=== PATIENT | male | born 1970 | race Caucasian/White ===

== ENCOUNTER 2019-06-11 16:11 | Inpatient (IN) ==
[2019-06-11] MEDS ORDERED: SODIUM CHLORIDE 0.9% 1000ML 1,000 ML IV ONE (16:22)
--- NOTE | 2019-06-11 16:30 | Emergency Department Note ---
Entered by Emiliana Higuera acting as a scribe for History of Present Illness General Chief complaint: Leg Injury/Pain Stated complaint: FALL 8' FROM LADDER, LEG INJURY Source: patient History of Present Illness Onset (ago): minute(s) (prior to arrival) Location: head (general) Pain Consistency: + other (episode) Quality: + other (fall) Associated symptoms: + other (left leg pain and deformity, lower back pain) The patient is a 48 year old male who presents to the Emergency Room following an episode of a fall that occurred just prior to arrival. EMS states the patient was standing about 5 to 8 feet above the ground on a step ladder on uneven ground. EMS reports the patient's left leg went through the rungs of the ladder and he fell onto his back. EMS reports a deformity in his left leg. EMS states the patient was standing on his right leg leaning against a pole when they arrived.EMS notes the patient was given fentanyl on the way to the ER. The patient reports left leg pain, lower back pain, and a scraped elbow. The patient reports occasional tobacco and alcohol use. He states he had one drink earlier today. He notes that he is currently taking medication for his acid reflux. He denies any blood thinners. Home Medications Home Medications Medication Instructions Recorded Confirmed Type omeprazole 40 mg PO QAM 06/11/19 06/11/19 History Allergies Allergy/AdvReac Type Severity Reaction Status Date / Time No Known Allergies Allergy Verified 06/11/19 16:30 Past Med/Surg History Medical History Alcohol use (Chronic) Tobacco use (Chronic) GERD (gastroesophageal reflux disease) (Chronic) Surgical History History of arthroscopy of left shoulder (Chronic) History of arthroscopy of left knee (Chronic) Family History Mother Mental health disorder Social History Preferred Language: Syrian Communication Ability: Effective Harvest Worker Required: No Beliefs That Will Affect Care: None Current Living Situation: Alone Feels Safe at Home: Yes Safety Concerns: Feels Safe At This Time Smoking Status: Current every day smoker Tobacco Type: cigarettes ; Cigarettes Per Day: 4 cigarettes a day ; Hx Alcohol Use: Yes Alcohol type: beer Hx Substance Use: No Review of Systems See HPI for pertinent positives & negatives. and A total of 10 systems reviewed and were otherwise negative Physical Exam Vital Signs Vital Signs - 24 hr 06/11/19 16:16 06/11/19 18:16 06/11/19 19:00 Temperature 36.7 C Temperature Source Oral Sepsis Recent Fever Within 48 Hours No Sepsis Action Taken by Nursing No Action Required Pulse Rate 91 H 88 Pulse Rate [Right Finger] 106 H Pulse Rhythm Regular Regular Pulse Strength Normal Pulse Strength [Right Finger] Normal Respiratory Rate 16 24 Respiratory Effort / Characteristics Non-Labored Respiratory Depth Normal Deep Respiratory Pattern Regular Rapid/Deep Blood Pressure 127/95 Blood Pressure [Right Arm] 135/88 Blood Pressure Mean 105 Blood Pressure Mean [Right Arm] 103 Blood Pressure Position Lying Pulse Oximetry 95 98 98 Oxygen Delivery Method Nasal Cannula Room Air Room Air Oxygen Flow Rate 2 06/11/19 19:19 Temperature Temperature Source Sepsis Recent Fever Within 48 Hours Sepsis Action Taken by Nursing Pulse Rate Pulse Rate [Right Finger] 82 Pulse Rhythm Pulse Strength Pulse Strength [Right Finger] Respiratory Rate 16 Respiratory Effort / Characteristics Respiratory Depth Respiratory Pattern Blood Pressure Blood Pressure [Right Arm] 135/88 Blood Pressure Mean Blood Pressure Mean [Right Arm] 103 Blood Pressure Position Pulse Oximetry 97 Oxygen Delivery Method Room Air Oxygen Flow Rate GENERAL: The patient is awake and alert. He is very anxious appearing and appears to be uncomfortable. EYES: The conjunctivae are clear. The pupils are round and reactive. EARS, NOSE, MOUTH AND THROAT: The nose is without any evidence of any deformity. Mucous membranes are moist.Tongue is midline NECK: The neck is nontender and supple. RESPIRATORY: Normal respiratory effort is noted. There is no evidence of wheezing rhonchi or rales to auscultation. CARDIOVASCULAR: Regular rate and rhythm noted. There no murmurs rubs or gallops normal S1 normal S2 GASTROINTESTINAL: The abdomen is soft. Bowel sounds are present in all quadrants. Abdomen is nontender. BACK: There is midline tenderness noted in the low lumbar spine. There is no thoracic tenderness to palpation. Range of motion appears intact. MUSCULOSKELETAL/EXTREMITIES: There is significant tenderness and swelling over the left knee. There is crepitus noted to palpation. Pulses are symmetric in both feet. Skin is cool and dry in both feet. There is an abrasion over the right elbow but patient is full range of motion. SKIN: There is no obvious evidence of any rash. There are no petechiae, pallor or cyanosis noted. NEUROLOGIC: Patient is awake alert and oriented x3. Course 1615: Past medical records reviewed. The patient was evaluated in room A02. A complete history and physical exam was performed. 1734: Upon reevaluation, I discussed findings and results with the patient. 1916: I spoke with Dr. Boothe - [facility] who agrees the patient should be admitted. 1923: Upon reevaluation, I discussed findings and results with the patient. He verbalized agreement of the treatment plan. I spoke with Adrián Waters of the [facility]. The patient will be evaluated for further management and care. Administered Medications Acetaminophen (Tylenol) 650 mg PO Q4H PRN PRN Reason: pain/fever Stop: 07/11/19 20:58 Last Admin: 06/12/19 07:21 Dose: 650 mg Documented by: [id number] Folic Acid (Folvite) 1 mg PO QAM MIRYAM Stop: 07/12/19 08:59 Last Admin: 06/12/19 09:07 Dose: 1 mg Documented by: [id number] Sodium Chloride (Nss 1000ml) 1,000 mls @ 125 mls/hr IV .Q8H MIRYAM Stop: 07/12/19 00:44 Last Admin: 06/12/19 13:59 Dose: 125 mls/hr Documented by: [id number] Infusion: 06/12/19 13:09 Dose: 125 mls/hr Documented by: [id number] Admin: 06/12/19 05:09 Dose: 125 mls/hr Documented by: [id number] Morphine Sulfate (Morphine Sulfate) 3 mg IV Q3HWA PRN PRN Reason: Severe Pain Stop: 06/25/19 20:58 Last Admin: 06/12/19 12:33 Dose: 3 mg Documented by: [id number] Admin: 06/12/19 08:03 Dose: 3 mg Documented by: [id number] Oxycodone HCl (Roxicodone Immediate Rel) 5 mg PO Q6H PRN PRN Reason: Moderate Pain Stop: 06/25/19 20:58 Last Admin: 06/12/19 10:20 Dose: 5 mg Documented by: [id number] Admin: 06/12/19 03:42 Dose: 5 mg Documented by: [id number] Admin: 06/11/19 21:29 Dose: 5 mg Documented by: [id number] Pantoprazole Sodium (Protonix) 40 mg PO DAILY MIRYAM Stop: 07/12/19 08:59 Last Admin: 06/12/19 09:06 Dose: 40 mg Documented by: [id number] Thiamine HCl (Vitamin B-1) 100 mg PO QAM MIRYAM Stop: 07/12/19 08:59 Last Admin: 06/12/19 09:06 Dose: 100 mg Documented by: [id number] Discontinued Medications Fentanyl Citrate (Fentanyl Citrate) 50 mcg IV Q15M PRN PRN Reason: Pain Stop: 06/25/19 16:21 Last Admin: 06/11/19 20:33 Dose: 50 mcg Documented by: [id number] Admin: 06/11/19 20:17 Dose: 50 mcg Documented by: [id number] Admin: 06/11/19 19:56 Dose: 50 mcg Documented by: [id number] Admin: 06/11/19 19:19 Dose: 50 mcg Documented by: [id number] Admin: 06/11/19 17:45 Dose: 50 mcg Documented by: [id number] Admin: 06/11/19 16:38 Dose: 50 mcg Documented by: [id number] Gabapentin (Neurontin) 1,200 mg PO TODAY@2200 MRIYAM Stop: 06/11/19 22:01 Last Admin: 06/11/19 21:30 Dose: 1,200 mg Documented by: [id number] Gabapentin (Neurontin) 600 mg PO Q6H MIRYAM Stop: 06/12/19 10:01 Last Admin: 06/12/19 09:07 Dose: 600 mg Documented by: [id number] Admin: 06/12/19 03:44 Dose: 600 mg Documented by: [id number] Sodium Chloride (Nss 1000ml) 1,000 mls @ 999 mls/hr IV .Q1H1M ONE Stop: 06/11/19 17:22 Last Infusion: 06/11/19 17:46 Dose: 0 mls/hr Documented by: [id number] Admin: 06/11/19 16:38 Dose: 999 mls/hr Documented by: [id number] Sodium Chloride (Nss 1000ml) 1,000 mls @ 125 mls/hr IV .Q8H MIRYAM Stop: 06/12/19 04:58 Last Infusion: 06/12/19 05:25 Dose: 0 mls/hr Documented by: [id number] Admin: 06/11/19 21:30 Dose: 125 mls/hr Documented by: [id number] Morphine Sulfate (Morphine Sulfate) 3 mg IV Q4H PRN PRN Reason: Severe Pain Stop: 06/25/19 20:58 Last Admin: 06/12/19 05:06 Dose: 3 mg Documented by: [id number] Admin: 06/11/19 23:36 Dose: 3 mg Documented by: [id number] Potassium Chloride (Klor-Con M20) 40 meq PO TODAY@2100 MIRYAM Stop: 06/11/19 21:01 Last Admin: 06/11/19 21:30 Dose: 40 meq Documented by: [id number] Medical Decision Making Differential Diagnosis Differential diagnoses include major intracranial, cervical, spinal, thoracic, abdominal, pelvic and neurologic injury. Fracture, contusion, sprain, strain, laceration, abrasions included as well. Medical Records Attestation: I reviewed the patient's medical records. Home Medications Current Medication List: was personally reviewed by me Laboratory Data Attestation: I reviewed the patient's lab results. Result diagrams: 06/11/19 16:53 06/11/19 16:53 Lab Results 06/11/19 06/11/19 Range/Units 16:53 16:53 WBC 15.13 H (4.8-10.8) K/uL RBC 4.38 L (4.7-6.1) M/uL Hgb 14.9 (14.0-18.0) g/dL Hct 41.8 L (42-52) % MCV 95.4 (80-100) fL MCH 34.0 (25-34) pg MCHC 35.6 (32-36) g/dL RDW Std Deviation 45.8 (36.4-46.3) fL RDW Coeff of Kali 13.1 (11.5-14.5) % Plt Count 219 (130-400) K/uL MPV 10.6 H (7.4-10.4) fL Immature Gran % (Auto) 0.4 % Neut % (Auto) 85.0 % Lymph % (Auto) 8.4 % [place] % (Auto) 5.8 % Eos % (Auto) 0.1 % Baso % (Auto) 0.3 % Immature Gran # (Auto) 0.06 H (0.00-0.02) K/uL Neut # (Auto) 12.87 H (1.4-6.5) K/uL Lymph # (Auto) 1.27 (1.2-3.4) K/uL [place] # (Auto) 0.87 H (0.11-0.59) K/uL Eos # (Auto) 0.02 (0-0.5) K/uL Baso # (Auto) 0.04 (0-0.2) K/uL Sodium 141 (136-145) mmol/L Potassium 3.4 L (3.5-5.1) mmol/L Chloride 107 (98-107) mmol/L Carbon Dioxide 23 (21-32) mmol/L Anion Gap 11.0 (3-11) BUN 12 (7-18) mg/dl Creatinine 0.78 (0.6-1.4) mg/dl Est Cr Clr Drug Dosing 97.8 ml/min Est GFR ( Amer) 122.0 Est GFR (Non-Af Amer) 105.3 BUN/Creatinine Ratio 15.4 (10-20) Glucose 83 (70-99) mg/dl Calcium 8.1 L (8.5-10.1) mg/dl Total Bilirubin 0.6 (0.2-1) mg/dl AST 25 (15-37) U/L ALT 33 (12-78) U/L Alkaline Phosphatase 71 (45-117) U/L Total Protein 6.6 (6.4-8.2) gm/dl Albumin 3.6 (3.4-5.0) gm/dl Globulin 3.0 (2.5-4.0) gm/dl Albumin/Globulin Ratio 1.2 (0.9-2) TSH 1.280 (0.300-4.500) uIu/ml Imaging Data Radiologist's Impression: Radiology results as stated below per my review and the radiologist's interpretation: CT OF THE CERVICAL SPINE CLINICAL HISTORY: Neck pain status post trauma. Patient fell from a ladder. COMPARISON STUDY: No previous studies for comparison. CT DOSE: 1047.28 mGy.cm TECHNIQUE: CT scan of the cervical spine was performed from the skull base to the thoracic inlet. Images are reviewed in the axial, sagittal, and coronal planes. IV contrast was not administered for this examination. A dose lowering technique was utilized adhering to the principles of ALARA. FINDINGS: The visualized portions of the lung apices reveal no evidence of pneumothorax. There is a 14 mm left lobe thyroid nodule. Current recommendations indicate no necessity of follow-up at a patient this age The prevertebral soft tissues are normal. No fractures or subluxations are visualized. There are multilevel degenerative changes IMPRESSION: No evidence of acute fracture or traumatic subluxation. Electronically signed by: Lon Denton M.D. 06/11/2019 5:[address] head/brain wo con CLINICAL HISTORY: Head pain status post trauma. Fall from 8 foot ladder. COMPARISON STUDY: No previous studies for comparison. TECHNIQUE: Axial CT of the brain is performed from the vertex to the skull base. IV contrast was not administered for this examination. A dose lowering technique was utilized adhering to the principles of ALARA. CT DOSE: FINDINGS: No intra or extra-axial mass lesions are visualized. There is no CT evidence of acute cortical infarction. There is no evidence of midline shift. There is no acute hemorrhage. No calvarial fractures are visualized. There is no evidence of pathologic ventricular dilatation. There is no evidence of acute sinusitis IMPRESSION: No acute intracranial findings Electronically signed by: Lon Denton M.D. 06/11/2019 5:[address] lumbar spine wo con CT DOSE: 518.37 mGy.cm CLINICAL HISTORY: Back pain. 8 foot fall from ladder TECHNIQUE: Helical images were acquired in transverse plane. Reformatted sagittal and coronal images were reviewed. A dose lowering technique was utilized adhering to the principles of ALARA. CONTRAST: No contrast was administered COMPARISON STUDY: None. FINDINGS: There are bilateral nonobstructing renal calculi. . L1-2 level: There is no evidence of significant disc bulge or focal herniation. There is no evidence of spinal or foraminal stenosis. L2-3 level: There is no evidence of significant disc bulge or focal herniation. There is no evidence of spinal or foraminal stenosis. L3-4 level: There is no evidence of significant disc bulge or focal herniation. There is no evidence of spinal or foraminal stenosis. L4-5 level: There is no evidence of significant disc bulge or focal herniation. There is no evidence of spinal or foraminal stenosis. L5-S1 level: There is a mild circumferential disc bulge. There is no significant spinal or foraminal stenosis. There is a mild spinal curvature convex to the left No fractures or subluxations are visualized. IMPRESSION: No fractures or subluxations are visualized. Electronically signed by: Lon Denton M.D. 06/11/2019 5:22 PM XR knee LT 2V routine CLINICAL HISTORY: Left knee pain status post trauma COMPARISON: None. DISCUSSION: There is an acute comminuted transverse fracture through the proximal tibial metaphysis with a longitudinal component extending through the lateral tibial plateau. There is an associated comminuted proximal fibular fracture. There is a lipohemarthrosis. IMPRESSION: 1. Lipohemarthrosis 2. Comminuted proximal tibial fracture with a longitudinal component involving the lateral tibial plateau 3. Comminuted proximal fibular fracture Electronically signed by: Lon Denton M.D. 06/11/2019 4:58 PM XR femur LT 2V routine CLINICAL HISTORY: Left leg pain status post trauma COMPARISON: None. DISCUSSION: No fractures or dislocations of the left femur are visualized. At the level of the knee there is a lipohemarthrosis. There are fractures of the proximal tibia and fibula as described on the knee radiographs. IMPRESSION: 1. Lipohemarthrosis the level in the 2. No evidence of femoral fracture 3. Fractures of the proximal tibia and fibula Electronically signed by: Lon Denton M.D. 06/11/2019 4:59 PM XR pelvis 1-2V routine CLINICAL HISTORY: Pelvic pain status post trauma COMPARISON: None. DISCUSSION: No fractures or dislocations are visualized. There is no evidence for symphysis diastases. There is no evidence for SI joint diastases. IMPRESSION: No fractures identified. Electronically signed by: Lon Denton M.D. 06/11/2019 4:[address] knee LT wo con CT DOSE: 148.58 mGy.cm CLINICAL HISTORY: Left knee pain status post trauma. 8 foot fall from ladder. TECHNIQUE: Helical images were acquired in the transverse plane. Sagittal and coronal reformatted images were acquired. A dose lowering technique was utilized adhering to the principles of ALARA. COMPARISON STUDY: X-ray study performed the same day FINDINGS: There is a lipoma hemarthrosis. No fractures of the patella or distal femur are visualized. There is a comminuted impacted fracture of the proximal tibia with longitudinal components involving the medial and lateral tibial plateaus. There is 2 mm of maximal depression. There is 1 cm of foreshortening. There is an associated comminuted fracture the proximal fibula. IMPRESSION: 1. Lipohemarthrosis 2. Impacted fracture of the proximal tibial metaphysis with 1 cm of foreshortening. There are longitudinal fracture components which involve both the medial and lateral tibial plateaus. 3. Comminuted proximal fibular head and neck fracture Electronically signed by: Lon Denton M.D. 06/11/2019 5:26 PM Blood Pressure Blood Pressure Findings: Elevated blood pressure Blood Pressure Disposition: further management by hospitalist MARTHA Narrative The patient is a 48-year-old male who presented to the emergency department after a fall. I did receive a prehospital notification about this patient. Medic command was notified and the patient was given pain medication prior to arrival. He presents with very significant left knee pain. He does have some back pain as well. I do feel the back pain in the knee pain could be distracting so other radiographic studies were obtained to ensure there was no head injury or neck injury. I discussed the patient's laboratory and radiographic studies with him. He was found to have a very significant knee fracture on x-ray. A CAT scan was also obtained to further evaluate the injury to the left knee. The patient was treated with IV pain medication in the emergency department multiple times. He was placed into a knee immobilizer. He still had very significant pain. I discussed his case with the on-call orthopedic physician. Because of his significant pain I do not feel the patient would be a good candidate for outpatient management. For this reason I did discuss this case [facility] They have agreed to evaluate the patient in the emergency department for further management disposition. Impression & Plan Fall, Closed fracture of left tibial plateau, Lumbar contusion Discharge Plan Visit Data *Final* Discharge Date/Time: 06/11/19 20:35 Chief Complaint: Leg Injury/Pain Stated Complaint: FALL 8' FROM LADDER, LEG INJURY ED Provider: Suman Mello Discharge Problem: Fall, Closed fracture of left tibial plateau, Lumbar contusion Patient Disposition: Admitted As Inpatient Discharge Instructions Interventions: ED Discharge Assessment Last Done: 06/11/19 20:35 Discharge Problem: Fall Qualifiers: Encounter type: initial encounter Qualified Code(s): W19.XXXA - Unspecified fall, initial encounter Closed fracture of left tibial plateau Qualifiers: Encounter type: initial encounter Qualified Code(s): S82.142A - Displaced bicondylar fracture of left tibia, initial encounter for closed fracture Lumbar contusion Qualifiers: Encounter type: initial encounter Qualified Code(s): S30.0XXA - Contusion of lower back and pelvis, initial encounter The scribe's documentation has been prepared under my direction and personally reviewed by me in its entirety. I confirm that the note above accurately reflects all work, treatment, procedures, and medical decision making performed by me.
[2019-06-11] MEDS: fentaNYL citrate 100 MCG/2 ML VIAL IV PRN ×6 (16:38→20:33)
--- NOTE | 2019-06-11 16:58 | XRay Report ---
XR pelvis 1-2V routine CLINICAL HISTORY: Pelvic pain status post trauma COMPARISON: None. DISCUSSION: No fractures or dislocations are visualized. There is no evidence for symphysis diastases . There is no evidence for SI joint diastases. IMPRESSION: No fractures identified. Electronically signed by: Lon Denton M.D. 06/11/2019 4:56 PM
--- NOTE | 2019-06-11 16:59 | XRay Report ---
XR knee LT 2V routine CLINICAL HISTORY: Left knee pain status post trauma COMPARISON: None. DISCUSSION: There is an acute comminuted transverse fracture through the proximal tibial metaphysis w ith a longitudinal component extending through the lateral tibial plateau. There is an associated com minuted proximal fibular fracture. There is a lipohemarthrosis. IMPRESSION: 1. Lipohemarthrosis 2. Comminuted proximal tibial fracture with a longitudinal component involving the lateral tibial shahram teau 3. Comminuted proximal fibular fracture Electronically signed by: Lon Denton M.D. 06/11/2019 4:58 PM
--- NOTE | 2019-06-11 17:00 | XRay Report ---
XR femur LT 2V routine CLINICAL HISTORY: Left leg pain status post trauma COMPARISON: None. DISCUSSION: No fractures or dislocations of the left femur are visualized. At the level of the knee t here is a lipohemarthrosis. There are fractures of the proximal tibia and fibula as described on the knee radiographs. IMPRESSION: 1. Lipohemarthrosis the level in the 2. No evidence of femoral fracture 3. Fractures of the proximal tibia and fibula Electronically signed by: Lon Denton M.D. 06/11/2019 4:59 PM
[2019-06-11 17:12] LABS: Basophils # (auto) 0.04 K/uL (0-0.2); Basophils % (auto) 0.3 %; Eosinophils # (auto) 0.02 K/uL (0-0.5); Eosinophils % (auto) 0.1 %; Hematocrit (blood only) 41.8 % (42-52); Hemoglobin 14.9 g/dL (14.0-18.0); Immature Granulocytes # (auto) 0.06 K/uL (0.00-0.02); Immature Granulocytes % (auto) 0.4 %; Lymphocytes # (auto) 1.27 K/uL (1.2-3.4); Lymphocytes % (auto) 8.4 %; Mean Corpuscular Hgb Conc 35.6 g/dL (32-36); Mean Corpuscular Volume 95.4 fL (80-100); Mean Platelet Volume 10.6 fL (7.4-10.4); Monocytes # (auto) 0.87 K/uL (0.11-0.59); Monocytes % (auto) 5.8 %; Neutrophils # (auto) 12.87 K/uL (1.4-6.5); Platelet Count 219 K/uL (130-400); RDW Coefficient of Variation 13.1 % (11.5-14.5); RDW Standard Deviation 45.8 fL (36.4-46.3); Red Blood Count 4.38 M/uL (4.7-6.1); White Blood Count 15.13 K/uL (4.8-10.8)
--- NOTE | 2019-06-11 17:17 | CT Scan Report ---
CT OF THE CERVICAL SPINE CLINICAL HISTORY: Neck pain status post trauma. Patient fell from a ladder. COMPARISON STUDY: No previous studies for comparison. CT DOSE: 1047.28 mGy.cm TECHNIQUE: CT scan of the cervical spine was performed from the skull base to the thoracic inlet. Melanie ges are reviewed in the axial, sagittal, and coronal planes. IV contrast was not administered for thi s examination. A dose lowering technique was utilized adhering to the principles of ALARA. FINDINGS: The visualized portions of the lung apices reveal no evidence of pneumothorax. There is a 14 mm left lobe thyroid nodule. Current recommendations indicate no necessity of follow-up at a patient this age The prevertebral soft tissues are normal. No fractures or subluxations are visualized. There are multilevel degenerative changes IMPRESSION: No evidence of acute fracture or traumatic subluxation. Electronically signed by: Lon Denton M.D. 06/11/2019 5:15 PM
--- NOTE | 2019-06-11 17:17 | CT Scan Report ---
CT head/brain wo con CLINICAL HISTORY: Head pain status post trauma. Fall from 8 foot ladder. COMPARISON STUDY: No previous studies for comparison. TECHNIQUE: Axial CT of the brain is performed from the vertex to the skull base. IV contrast was not administered for this examination. A dose lowering technique was utilized adhering to the principles of ALARA. CT DOSE: FINDINGS: No intra or extra-axial mass lesions are visualized. There is no CT evidence of acute cortical infarc tion. There is no evidence of midline shift. There is no acute hemorrhage. No calvarial fractures ar e visualized. There is no evidence of pathologic ventricular dilatation. There is no evidence of acute sinusitis IMPRESSION: No acute intracranial findings Electronically signed by: Lon Denton M.D. 06/11/2019 5:15 PM
--- NOTE | 2019-06-11 17:23 | CT Scan Report ---
CT lumbar spine wo con CT DOSE: 518.37 mGy.cm CLINICAL HISTORY: Back pain. 8 foot fall from ladder TECHNIQUE: Helical images were acquired in transverse plane. Reformatted sagittal and coronal images were reviewed. A dose lowering technique was utilized adhering to the principles of ALARA. CONTRAST: No contrast was administered COMPARISON STUDY: None. FINDINGS: There are bilateral nonobstructing renal calculi. . L1-2 level: There is no evidence of significant disc bulge or focal herniation. There is no evidence of spinal or foraminal stenosis. L2-3 level: There is no evidence of significant disc bulge or focal herniation. There is no evidence of spinal or foraminal stenosis. L3-4 level: There is no evidence of significant disc bulge or focal herniation. There is no evidence of spinal or foraminal stenosis. L4-5 level: There is no evidence of significant disc bulge or focal herniation. There is no evidence of spinal or foraminal stenosis. L5-S1 level: There is a mild circumferential disc bulge. There is no significant spinal or foraminal stenosis. There is a mild spinal curvature convex to the left No fractures or subluxations are visualized. IMPRESSION: No fractures or subluxations are visualized. Electronically signed by: Lon Denton M.D. 06/11/2019 5:22 PM
[2019-06-11 17:26] LABS: Albumin Level 3.6 gm/dl (3.4-5.0); BUN Creatinine Ratio 15.4 (10-20); Calcium 8.1 mg/dl (8.5-10.1); Creatinine Clr Calc Pharmacy 97.8 ml/min; Est GFR (Non-African American) 105.3; Potassium 3.4 mmol/L (3.5-5.1)
--- NOTE | 2019-06-11 17:27 | CT Scan Report ---
CT knee LT wo con CT DOSE: 148.58 mGy.cm CLINICAL HISTORY: Left knee pain status post trauma. 8 foot fall from ladder. TECHNIQUE: Helical images were acquired in the transverse plane. Sagittal and coronal reformatted randy ges were acquired. A dose lowering technique was utilized adhering to the principles of ALARA. COMPARISON STUDY: X-ray study performed the same day FINDINGS: There is a lipoma hemarthrosis. No fractures of the patella or distal femur are visualized. There is a comminuted impacted fracture of the proximal tibia with longitudinal components involving the medial and lateral tibial plateaus. There is 2 mm of maximal depression. There is 1 cm of foresho rtening. There is an associated comminuted fracture the proximal fibula. IMPRESSION: 1. Lipohemarthrosis 2. Impacted fracture of the proximal tibial metaphysis with 1 cm of foreshortening. There are longitu dinal fracture components which involve both the medial and lateral tibial plateaus. 3. Comminuted proximal fibular head and neck fracture Electronically signed by: Lon Denton M.D. 06/11/2019 5:26 PM
[2019-06-11 17:36] LABS: Albumin Globulin Ratio 1.2 (0.9-2); Bilirubin,Total 0.6 mg/dl (0.2-1); Thyroid Stimulating Hormone 1.28 uIu/ml (0.300-4.500); Total Protein 6.6 gm/dl (6.4-8.2)
--- NOTE | 2019-06-11 20:01 | History & Physical Report ---
Date of Service June 11, 2019 Assessment & Plan (1) Fracture of tibia, proximal, left, closed: (2) Closed fracture of fibula, proximal, left: Pt presented with fall from 8 foot ladder. Remembers fall and does not think had LOC. CT HEAD: No acute intracranial findings CT C-SPINE:No evidence of acute fracture or traumatic subluxation. CT L-SPINE: No fractures or subluxations are visualized. LEFT KNEE XRAY: Lipohemarthrosis. Comminuted proximal tibial fracture with a longitudinal component involving the lateral tibial plateau. Comminuted proximal fibular fracture LEFT KNEE CT: Lipohemarthrosis. Impacted fracture of the proximal tibial metaphysis with 1 cm of foreshortening. There are longitudinal fracture components which involve both the medial and lateral tibial plateaus. Comminuted proximal fibular head and neck fracture LEFT FEMUR XRAY: No evidence of femoral fracture PELVIS XRAY: No fractures identified. -In ER received fentanyl, IVF. Pt admitted for pain control -Knee immobilizer placed -Morphine, oxycodone prn pain -Ortho consult (3) Hypokalemia: K: 3.4 -Replace and monitor (4) GERD (gastroesophageal reflux disease): -Continue PPI (5) Alcohol use: 6 beers/day. Denies hx ETOH withdrawal. Last drink 1pm today -Gabapentin withdrawal protocol with Ativan prn -Alcohol cessation/cutting back recommended (6) Tobacco use: -Denies nicotine patch -Smoking cessation recommended DVT Prophylaxis -SCDs to R leg Follows with Dr Campo at [facility] for routine care Pt was seen and care coordinated with Dr Sampson. See addendum History of Present Illness Chief Complaint: Fall, Left leg pain Primary Care Provider: Dr Campo - [facility] Pt is 48 y/o M with PMH GERD, alcohol use presented to ER with c/o fall and Left leg pain. States was approximately 8 feet above ground on ladder when he slipped and fell. Patient complains of left leg pain and unable to bear weight to left leg. Initially had low back pain but reports has since improved. Patient unsure if he hit his head. He reports remembers falling and hitting ground and then attempting to get off ground. Does not think had any LOC. patient reports drinks 6 beers a day. Reports 2 beers today and last drink around 1 PM today. Denies history of alcohol withdrawal. Patient denies headache, neck pain, other back pain, upper extremity pain, right lower extremity pain, hip or pelvic pain, abdominal pain, chest pain, shortness of breath, extremity paresthesias. Denies fever/chills, diaphoresis, N/V/D/C, dizziness, vision changes,orthopnea, palpitations, cough, sore throat, choking, otalgia, rhinorrhea, extremity edema, rashes, urinary symptoms. Allergies Allergy/AdvReac Type Severity Reaction Status Date / Time No Known Allergies Allergy Verified 06/11/19 16:30 Home Medications Home Medications Medication Instructions Recorded Confirmed Type omeprazole 40 mg PO QAM 06/11/19 06/11/19 History Past Med/Surg History Medical History Alcohol use (Chronic) Tobacco use (Chronic) GERD (gastroesophageal reflux disease) (Chronic) Surgical History History of arthroscopy of left shoulder (Chronic) History of arthroscopy of left knee (Chronic) Family History Mother Mental health disorder Social History Preferred Language: Tongan Communication Ability: Effective Classroom Technology Technician Required: No Beliefs That Will Affect Care: None Current Living Situation: Alone Feels Safe at Home: Yes Safety Concerns: Feels Safe At This Time Smoking Status: Current every day smoker Tobacco Type: cigarettes ; Cigarettes Per Day: 4 cigarettes a day ; Hx Alcohol Use: Yes Alcohol type: beer Hx Substance Use: No Review of Systems Review of Systems: All systems reviewed & are unremarkable except as noted in HPI & below Physical Exam Physical Exam: General: no acute distress, appears older than stated age, WDWN Head: normocephalic, atraumatic Eyes: PERRL, EOM's intact, conjunctiva non-injected, anicteric ENT: normal inspection external ears, nose, mucous membranes moist Neck: supple, trachea midline, non-tender, ROM intact Lungs: clear, no respiratory distress, no wheezing/rhonchi/rales CV: RRR, no murmur, no pretibial edema Abd: normal BS, soft, non-tender Ext: BUE: normal appearance, ROM intact and non-tender. RLE: normal appearance, nontender. LLE: +edema anterior knee, +knee immobilizer in place, distal pulses palpable, sensation to light touch intact, brisk capillary refill. Neuro: A&O x 3, no focal deficits noted, normal affect Skin: warm, dry Results & Data Vital Signs (Past 12 Hours) Vital Signs Temp Pulse Pulse Resp BP BP Pulse Ox 06/11/19 19:19 82 16 135/88 97 06/11/19 19:00 106 H 24 135/88 98 06/11/19 18:16 88 98 06/11/19 16:16 36.7 C 91 H 16 127/95 95 Laboratory Results Short CBC 06/11/19 Range/Units 16:53 WBC 15.13 H (4.8-10.8) K/uL Hgb 14.9 (14.0-18.0) g/dL Hct 41.8 L (42-52) % Plt Count 219 (130-400) K/uL BMP 06/11/19 16:53 Sodium 141 Potassium 3.4 L Chloride 107 Carbon Dioxide 23 BUN 12 Creatinine 0.78 Glucose 83 Calcium 8.1 L Liver Function 06/11/19 Range/Units 16:53 Total Bilirubin 0.6 (0.2-1) mg/dl AST 25 (15-37) U/L ALT 33 (12-78) U/L Alkaline Phosphatase 71 (45-117) U/L Albumin 3.6 (3.4-5.0) gm/dl Diagnostic Findings CT HEAD: IMPRESSION: No acute intracranial findings CT C-SPINE: IMPRESSION: No evidence of acute fracture or traumatic subluxation. CT L-SPINE: IMPRESSION: No fractures or subluxations are visualized. LEFT KNEE XRAY: IMPRESSION: 1. Lipohemarthrosis 2. Comminuted proximal tibial fracture with a longitudinal component involving the lateral tibial plateau 3. Comminuted proximal fibular fracture LEFT KNEE CT: IMPRESSION: 1. Lipohemarthrosis 2. Impacted fracture of the proximal tibial metaphysis with 1 cm of foreshortening. There are longitudinal fracture components which involve both the medial and lateral tibial plateaus. 3. Comminuted proximal fibular head and neck fracture LEFT FEMUR XRAY: IMPRESSION: 1. Lipohemarthrosis the level in the 2. No evidence of femoral fracture 3. Fractures of the proximal tibia and fibula PELVIS XRAY: IMPRESSION: No fractures identified. Code Status & VTE Plan VTE Prophylaxis Plan VTE Prophylaxis will be ordered: Yes Supervising Physician Co-Signing Physician Notes Care coordinated with Merna Barone PA-C. Agree with above note. Patient seen and examined. Please refer to her notes for full details. Vital signs reviewed. Physical exam: General exam: Alert and oriented. Not in acute distress. CVS: S1 and S2 heard, regular rate and rhythm, no murmurs. RS: Clear to auscultation, no wheezing or crackles. ABD: Soft, bowel sounds present, nontender, no distention. HOG PUSHER: Nonfocal. EXT: left lower extremity in immobilizer. Labs: Reviewed. Assessment and plan: 48M came with fall from ladder and found to have left proximal tibia/fibula fracture. Left proximal tibia/fibula fracture on immobilizer pain control ortho consult npo until seen by ortho pt/ot Alcoholism gabapentin withdrawal protocol close monitor. Other diagnosis and plan of care as per Merna Barone PA-C. Eliu ferguson MD.
[2019-06-11] MEDS ORDERED: ONDANSETRON INJ 2 MG/ML 2 ML VIAL IV PRN (20:59)
[2019-06-11] MEDS ORDERED: GABAPENTIN 1200MG ALCOHOL WITHDRAWAL LOAD PO STA (20:59)
[2019-06-11] MEDS ORDERED: LORazepam 1 MG TAB PO PRN (20:59)
[2019-06-11] MEDS ORDERED: SODIUM CHLORIDE 0.9% 1000ML 1,000 ML IV SCH (20:59)
[2019-06-11] MEDS ORDERED: POTASSIUM CHLORIDE 20 MEQ TABCR PO SCH (21:00)
[2019-06-11] MEDS: OXYCODONE HCL IR 5 MG TAB (IMMEDIATE RELEASE) PO PRN (21:29)
[2019-06-11] MEDS ORDERED: GABAPENTIN 600 MG TAB PO SCH (22:00)
[2019-06-11 22:54] LABS: Appearance Urine Clear (Clear); Bilirubin Urine Negative (Negative); Blood Urine Negative (Negative); Color Urine Yellow; Glucose Urine UA Negative (Negative); Leukocyte Esterase Urine Negative (Negative); Nitrite Urine Negative (Negative); Protein Urine Negative (Negative); Specific Gravity Urine 1.022 (1.000-1.030); Urobilinogen Urine Negative (Negative); pH Urine 5.5 (4.5-7.5)
[2019-06-11 23:12] LABS: Ketones Urine 4+ (Negative)
[2019-06-11] MEDS: MoRPHine SULFATE 4 MG/ML 1 ML CARP\\VIAL IV PRN (23:36)
[2019-06-12] MEDS: OXYCODONE HCL IR 5 MG TAB (IMMEDIATE RELEASE) PO PRN ×4 (03:42→23:50)
[2019-06-12] MEDS: GABAPENTIN 600 MG TAB PO SCH ×3 (03:44→17:45)
[2019-06-12] MEDS: MoRPHine SULFATE 4 MG/ML 1 ML CARP\\VIAL IV PRN ×5 (05:06→20:46)
[2019-06-12] MEDS: SODIUM CHLORIDE 0.9% 1000ML 1,000 ML IV SCH ×4 (05:09→22:04)
[2019-06-12] MEDS: ACETAMINOPHEN 325 MG TAB PO PRN ×2 (07:21→17:46)
--- NOTE | 2019-06-12 08:33 | Consultation Report ---
DATE OF CONSULTATION: 06/12/2019 ORTHOPEDIC CONSULTATION CHIEF COMPLAINT: Left knee pain. SUBJECTIVE: The patient is a 48-year-old gentleman who suffered an 8- to 10-foot fall from a ladder yesterday injuring primarily his left knee/lower extremity. He denies any loss of consciousness. He denies any significant head, neck or back pain. He was brought to the [facility] ED for evaluation. X-rays revealed a left proximal tibia and fibular fracture. He was admitted by the medical service and an orthopedics consult was called for. The patient denies any other significant medical history other than GERD. 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 He is single and lives alone. PHYSICAL EXAMINATION: On exam, he is lying in bed. Knee immobilizer is placed on the left lower extremity. His toes are mobile and neurovascularly intact. His lower leg is swollen but generally soft. Again, he denies any significant head, neck or back pain. He denies any pain proximally in the hip region. X-RAYS: The x-rays and CT of the left knee were reviewed. He has a minimally displaced bicondylar tibial plateau fracture with extension into the tibial metaphysis. There was more comminution on the lateral aspect with widening of the lateral tibial plateau. The articular surface is reasonably well aligned with 1-2 mm of displacement. There is an associated comminuted proximal fibular fracture as well. ASSESSMENT: A 48-year-old gentleman with a comminuted left tibial plateau fracture secondary to a fall from a ladder. PLAN: Above discussed with the patient. He understands he is going to need some surgery on this knee to stabilize the fracture. He understands this is a long recovery as he will need to be nonweightbearing for a considerable period of time. I will discuss this with Dr. Boothe and Dr. Boothe will formulate a surgical plan for the patient. SCOTT
[2019-06-12] MEDS: PANTOprazole 40 MG TAB PO SCH (09:06)
[2019-06-12] MEDS: THIAMINE HCL 100 MG TAB PO SCH (09:06)
[2019-06-12] MEDS: FOLIC ACID 1 MG TAB PO SCH (09:07)
--- NOTE | 2019-06-12 11:15 | Hospitalist Progress Note ---
Date of Service June 12, 2019 Assessment & Plan (1) Fracture of tibia, proximal, left, closed: (2) Closed fracture of fibula, proximal, left: Pt presented with fall from 8 foot ladder. Remembers fall and does not think had LOC. CT HEAD: No acute intracranial findings CT C-SPINE:No evidence of acute fracture or traumatic subluxation. CT L-SPINE: No fractures or subluxations are visualized. LEFT KNEE XRAY: Lipohemarthrosis. Comminuted proximal tibial fracture with a longitudinal component involving the lateral tibial plateau. Comminuted proximal fibular fracture LEFT KNEE CT: Lipohemarthrosis. Impacted fracture of the proximal tibial metaphysis with 1 cm of foreshortening. There are longitudinal fracture components which involve both the medial and lateral tibial plateaus. Comminuted proximal fibular head and neck fracture LEFT FEMUR XRAY: No evidence of femoral fracture PELVIS XRAY: No fractures identified. Complains of pain in left knee joint Appreciate Ortho input and recommendation; likely to need some kind of surgery to stabilize left knee There is no contraindication for proposed surgery (3) Hypokalemia: K: 3.4 -Replace and monitor (4) GERD (gastroesophageal reflux disease): -Continue PPI (5) Alcohol use: 6 beers/day. Denies hx ETOH withdrawal. Last drink 1pm today -Gabapentin withdrawal protocol with Ativan prn -Alcohol cessation/cutting back recommended -He does not drink alcohol regularly and has had weeks without it without any problem before -Likely not to have any withdrawal symptoms in the hospital but precautions have been taken to avoid it if it happens to be (6) Tobacco use: -Denies nicotine patch -Smoking cessation recommended DVT Prophylaxis -SCDs to R leg Follows with Dr Campo at [facility] for routine care Likely to have surgery in a day or 2 Subjective 06/12 The patient was seen and examined in medical floor He is a status post fall with fracture of left proximal tibia and fibula Has been complaining of more pain No palpitation and no tremor Review of Systems Review of Systems: All systems reviewed and are unremarkable except as noted. Musculoskeletal: + joint pain (Left knee pain) Neurologic: no tremor(s) Physical Exam Physical Exam: Lying in bed with discomfort secondary to left knee pain Constitutional: well developed, well nourished and + ill appearing Eyes: PERRL, conjunctivae normal, anicteric sclerae ENMT: external ear and nose normal, oropharynx normal Neck: trachea midline, no thyromegaly Respiratory: normal respiratory effort Auscultation: lungs clear to auscultation bilaterally Cardiovascular: Rate/Rhythm: regular rate and regular rhythm Heart Sounds: no murmur Gastrointestinal (Abdomen): Inspection/Auscultation: abdomen normal to inspection and normal bowel sounds Percussion/Palpation: abdomen soft Musculoskeletal: Any movement of the left lower extremity causes pain in his left knee joint Neurologic: moves all extremities; no focal motor deficits Motor/Sensory: no tremor No signs of alcohol withdrawal Results & Data Vital Signs (Past 12 Hours) Vital Signs Temp Pulse Pulse Resp BP BP Pulse Ox 06/12/19 07:16 36.7 C 60 18 143/87 H 94 06/12/19 07:00 68 06/12/19 04:00 36.8 C 58 L 18 145/80 H 96 06/12/19 00:20 91 H Laboratory Results Short CBC 06/11/19 Range/Units 16:53 WBC 15.13 H (4.8-10.8) K/uL Hgb 14.9 (14.0-18.0) g/dL Hct 41.8 L (42-52) % Plt Count 219 (130-400) K/uL BMP 06/11/19 16:53 Sodium 141 Potassium 3.4 L Chloride 107 Carbon Dioxide 23 BUN 12 Creatinine 0.78 Glucose 83 Calcium 8.1 L Liver Function 06/11/19 Range/Units 16:53 Total Bilirubin 0.6 (0.2-1) mg/dl AST 25 (15-37) U/L ALT 33 (12-78) U/L Alkaline Phosphatase 71 (45-117) U/L Albumin 3.6 (3.4-5.0) gm/dl Urine 06/11/19 Range/Units 22:03 Urine Color Yellow Urine Appearance Clear (Clear) Urine pH 5.5 (4.5-7.5) Ur Specific [place] 1.022 (1.000-1.030) Urine Protein Negative (Negative) Urine Glucose (UA) Negative (Negative) Medications Administered Current Inpatient Medications Acetaminophen (Tylenol) 650 mg PO Q4H PRN PRN Reason: pain/fever Stop: 07/11/19 20:58 Last Admin: 06/12/19 07:21 Dose: 650 mg Documented by: Folic Acid (Folvite) 1 mg PO QAM [facility] Stop: 07/12/19 08:59 Last Admin: 06/12/19 09:07 Dose: 1 mg Documented by: Gabapentin (Neurontin) 600 mg PO Q12H [facility] Stop: 06/14/19 10:01 Gabapentin (Neurontin) 600 mg PO Q24H [facility] Stop: 06/15/19 10:01 Gabapentin (Neurontin) 600 mg PO Q8H [facility] Stop: 06/13/19 10:01 Sodium Chloride (Nss 1000ml) 1,000 mls @ 125 mls/hr IV .Q8H [facility] Stop: 07/12/19 00:44 Last Admin: 06/12/19 05:09 Dose: 125 mls/hr Documented by: Lorazepam (Ativan) 1 mg PO ONE PRN; Protocol PRN Reason: EtoH Withdrawal AWSS 6-10 Morphine Sulfate (Morphine Sulfate) 3 mg IV Q3HWA PRN PRN Reason: Severe Pain Stop: 06/25/19 20:58 Ondansetron HCl (Zofran) 4 mg IV Q6H PRN PRN Reason: Nausea Stop: 07/11/19 20:58 Oxycodone HCl (Roxicodone Immediate Rel) 5 mg PO Q6H PRN PRN Reason: Moderate Pain Stop: 06/25/19 20:58 Last Admin: 06/12/19 10:20 Dose: 5 mg Documented by: Pantoprazole Sodium (Protonix) 40 mg PO DAILY [facility] Stop: 07/12/19 08:59 Last Admin: 06/12/19 09:06 Dose: 40 mg Documented by: Thiamine HCl (Vitamin B-1) 100 mg PO QAM [facility] Stop: 07/12/19 08:59 Last Admin: 06/12/19 09:06 Dose: 100 mg Documented by:
[2019-06-13] MEDS: MoRPHine SULFATE 4 MG/ML 1 ML CARP\\VIAL IV PRN ×6 (03:05→21:20)
[2019-06-13] MEDS: GABAPENTIN 600 MG TAB PO SCH ×3 (03:05→22:31)
[2019-06-13] MEDS: SODIUM CHLORIDE 0.9% 1000ML 1,000 ML IV SCH ×3 (05:15→21:28)
[2019-06-13] MEDS: OXYCODONE HCL IR 5 MG TAB (IMMEDIATE RELEASE) PO PRN ×3 (06:29→23:17)
[2019-06-13] MEDS: FOLIC ACID 1 MG TAB PO SCH (09:06)
[2019-06-13] MEDS: PANTOprazole 40 MG TAB PO SCH (09:06)
[2019-06-13] MEDS: THIAMINE HCL 100 MG TAB PO SCH (09:06)
--- NOTE | 2019-06-13 11:19 | Orthopedic Progress Note ---
Date of Service June 13, 2019 Assessment & Plan (1) Closed fracture of left tibial plateau: Plan for ORIF of his left tibial plateau fracture tomorrow around 1 PM. Continue immobilizer for now. May loosen while in bed. Ice packs as able. We discussed that he would be in the hospital for another 2 or 3 days depending on how his pain control is and how he responds with physical therapy. Will likely plan for hinged knee orthosis after the surgery. Discussed that he would be nonweightbearing for 4-6 weeks. Starting ROM exercises likely at 2 weeks. Will make NPO after midnight. (2) Closed fracture of fibula, proximal, left: Subjective Patient currently sleeping in bed. Easily awoken. No complaints at the present time. Was having pain off and on but is comfortable at rest. Moving the leg causes discomfort. He states that when the immobilizer is too tight, the metal stays along the medial and lateral aspect cause discomfort. Review of Systems Review of Systems: All systems reviewed & are unremarkable except as noted in HPI & below Constitutional: as per Subjective / HPI Physical Exam Physical Exam: Left lower extremity immobilizer is loosened. Noted swelling of his left knee. No overt erythema. Mild tenderness on palpation just proximal to the knee. Denies posterior thigh or calf pain. Patient has noted swelling down the lower extremity to the foot. He states that it has increased overnight. Able to move his toes quite well. Sensations intact. Toes are pink and warm. Capillary refill is less than 2 seconds. Immobilizer reapplied. Constitutional: WD/WN, vitals as above Results & Data Vital Signs (Past 12 Hours) Vital Signs Temp Pulse Pulse Resp BP BP Pulse Ox 06/13/19 07:15 86 06/13/19 07:00 36.6 C 76 20 130/87 95 06/13/19 03:47 37 C 78 18 145/87 H 92 06/12/19 23:30 63 (1) Closed fracture of left tibial plateau Encounter type: initial encounter Qualified Code(s): S82.142A - Displaced bicondylar fracture of left tibia, initial encounter for closed fracture
--- NOTE | 2019-06-13 12:33 | Hospitalist Progress Note ---
Date of Service June 13, 2019 Assessment & Plan (1) Fracture of tibia, proximal, left, closed: (2) Closed fracture of fibula, proximal, left: Pt presented with fall from 8 foot ladder. Remembers fall and does not think had LOC. CT HEAD: No acute intracranial findings CT C-SPINE:No evidence of acute fracture or traumatic subluxation. CT L-SPINE: No fractures or subluxations are visualized. LEFT KNEE XRAY: Lipohemarthrosis. Comminuted proximal tibial fracture with a longitudinal component involving the lateral tibial plateau. Comminuted proximal fibular fracture LEFT KNEE CT: Lipohemarthrosis. Impacted fracture of the proximal tibial metaphysis with 1 cm of foreshortening. There are longitudinal fracture components which involve both the medial and lateral tibial plateaus. Comminuted proximal fibular head and neck fracture LEFT FEMUR XRAY: No evidence of femoral fracture PELVIS XRAY: No fractures identified. Complains of pain in left knee joint Appreciate Ortho input and recommendation; likely to need some kind of surgery to stabilize left knee There is no contraindication for proposed surgery ORIF of left tibial plateau fracture tomorrow around 1 PM Continue current pain medications (3) Hypokalemia: K: 3.4 -Replace and monitor (4) GERD (gastroesophageal reflux disease): -Continue PPI (5) Alcohol use: 6 beers/day. Denies hx ETOH withdrawal. Last drink 1pm today -Gabapentin withdrawal protocol with Ativan prn -Alcohol cessation/cutting back recommended -He does not drink alcohol regularly and has had weeks without it without any problem before -Likely not to have any withdrawal symptoms in the hospital but precautions have been taken to avoid it if it happens to be -No signs and/or symptoms of withdrawal (6) Tobacco use: -Denies nicotine patch -Smoking cessation recommended DVT Prophylaxis -SCDs to R leg Follows with Dr Campo at [facility] for routine care ORIF of his left tibial plateau fracture tomorrow 06/14 Subjective 06/12 The patient was seen and examined in medical floor He is a status post fall with fracture of left proximal tibia and fibula Has been complaining of more pain No palpitation and no tremor 06/13 The patient was seen and examined in medical floor He has been complaining of ongoing pain in the left leg Denies any palpitation and/or tremor No fever and/or chills Review of Systems Review of Systems: All systems reviewed and are unremarkable except as noted. Musculoskeletal: + joint pain (Left knee pain) Physical Exam Physical Exam: No apparent distress at rest Constitutional: well developed and well nourished Eyes: PERRL, conjunctivae normal, anicteric sclerae ENMT: external ear and nose normal, oropharynx normal Neck: trachea midline, no thyromegaly Respiratory: normal respiratory effort Auscultation: lungs clear to auscultation bilaterally Cardiovascular: Rate/Rhythm: regular rate and regular rhythm Heart Sounds: no murmur Gastrointestinal (Abdomen): Inspection/Auscultation: abdomen normal to inspection and normal bowel sounds Percussion/Palpation: abdomen soft Musculoskeletal: Left knee and leg pain Neurologic: moves all extremities; no focal motor deficits Motor/Sensory: no tremor Results & Data Vital Signs (Past 12 Hours) Vital Signs Temp Pulse Pulse Resp BP BP Pulse Ox 06/13/19 07:15 86 06/13/19 07:00 36.6 C 76 20 130/87 95 06/13/19 03:47 37 C 78 18 145/87 H 92 Medications Administered Current Inpatient Medications Acetaminophen (Tylenol) 650 mg PO Q4H PRN PRN Reason: pain/fever Stop: 07/11/19 20:58 Last Admin: 06/12/19 17:46 Dose: 650 mg Documented by: Folic Acid (Folvite) 1 mg PO QAM [facility] Stop: 07/12/19 08:59 Last Admin: 06/13/19 09:06 Dose: 1 mg Documented by: Gabapentin (Neurontin) 600 mg PO Q12H [facility] Stop: 06/14/19 10:01 Gabapentin (Neurontin) 600 mg PO Q24H [facility] Stop: 06/15/19 10:01 Sodium Chloride (Nss 1000ml) 1,000 mls @ 125 mls/hr IV .Q8H [facility] Stop: 07/12/19 00:44 Last Admin: 06/13/19 05:15 Dose: 125 mls/hr Documented by: Lorazepam (Ativan) 1 mg PO ONE PRN; Protocol PRN Reason: EtoH Withdrawal AWSS 6-10 Morphine Sulfate (Morphine Sulfate) 3 mg IV Q3HWA PRN PRN Reason: Severe Pain Stop: 06/25/19 20:58 Last Admin: 06/13/19 09:05 Dose: 3 mg Documented by: Ondansetron HCl (Zofran) 4 mg IV Q6H PRN PRN Reason: Nausea Stop: 07/11/19 20:58 Oxycodone HCl (Roxicodone Immediate Rel) 5 mg PO Q6H PRN PRN Reason: Moderate Pain Stop: 06/25/19 20:58 Last Admin: 06/13/19 06:29 Dose: 5 mg Documented by: Pantoprazole Sodium (Protonix) 40 mg PO DAILY [facility] Stop: 07/12/19 08:59 Last Admin: 06/13/19 09:06 Dose: 40 mg Documented by: Thiamine HCl (Vitamin B-1) [facility] [place] Stop: 07/12/19 08:59 Last Admin: 06/13/19 09:06 Dose: 100 mg Documented by:
--- NOTE | 2019-06-13 14:49 | Anesthesiology Consultation ---
Date of Service June 13, 2019 Assessment & Plan (1) Encounter for pre-operative examination: Chart Review Chart Review: Acceptable Risk for Surgery and entry level civil engineer initiated Consults Requested none Additional Notes Chart review initiated to ensure patient is optimized for planned surgical procedure tomorrow. Order for preoperative EKG placed in chart. NPO after midnight except for a sip of water with pills as needed prior to surgery. History Surgery Operation Date: 06/13/19 14:00 Proposed Procedures p Left Tibial Plateu Fracture Open Reduction Internal Fixation - Terry Boothe DO Operation Date: 06/14/19 13:00 Proposed Procedures p Left Tibial Plateau Fracture Open Reduction Internal Fixation - Carlos Doe DO Height/Weight Height: 5 ft 6 in Weight: 67.9 kg Allergies Allergy/AdvReac Type Severity Reaction Status Date / Time No Known Allergies Allergy Verified 06/11/19 16:30 Medications Home Medications Medication Instructions Recorded Confirmed Last Taken omeprazole 40 mg PO QAM 06/11/19 06/11/19 06/11/19 Active Medications Generic Name Dose Route Start Last Admin Trade Name Freq PRN Reason Stop Dose Admin Acetaminophen 650 mg 06/11/19 20:59 06/12/19 17:46 Tylenol PO 07/11/19 20:58 650 mg Q4H PRN Administration pain/fever Folic Acid 1 mg 06/12/19 09:00 06/13/19 09:06 Folvite PO 07/12/19 08:59 1 mg QAM MIRYAM Administration Sodium Chloride 1,000 mls @ 125 mls/hr 06/12/19 00:45 06/13/19 13:02 Nss 1000ml IV 07/12/19 00:44 125 mls/hr .Q8H MIRYAM Administration Morphine Sulfate 3 mg 06/12/19 07:59 06/13/19 13:06 Morphine Sulfate IV 06/25/19 20:58 3 mg Q3HWA PRN Administration Severe Pain Oxycodone HCl 5 mg 06/11/19 20:59 06/13/19 06:29 Roxicodone Immediate Rel PO 06/25/19 20:58 5 mg Q6H PRN Administration Moderate Pain Pantoprazole Sodium 40 mg 06/12/19 09:00 06/13/19 09:06 Protonix PO 07/12/19 08:59 40 mg DAILY MIRYAM Administration Thiamine HCl 100 mg 06/12/19 09:00 06/13/19 09:06 Vitamin B-1 PO 07/12/19 08:59 100 mg QAM MIRYAM Administration Past Medical History Medical History Alcohol use (Chronic) Tobacco use (Chronic) GERD (gastroesophageal reflux disease) (Chronic) Past Family History Family History Mother Mental health disorder Past Surgical History Surgical History History of arthroscopy of left shoulder (Chronic) History of arthroscopy of left knee (Chronic) Social History Smoking Status: Current every day smoker tobacco type: cigarettes Smoking cigarettes per day: 4 cigarettes a day Hx Alcohol Use: Yes Alcohol type: beer alcohol intake frequency: 3 or more drinks per day Hx Substance Use: No Physical Exam Vital Signs Last Vital Signs Temp 37.0 C 06/13/19 14:25 Pulse 82 06/13/19 14:25 Resp 14 06/13/19 14:25 BP 134/90 06/13/19 14:25 Pulse Ox 94 06/13/19 14:25 Testing Laboratory Results 06/11/19 16:53 06/11/19 16:53 Urine Color Yellow 06/11/19 22:03 Urine Appearance Clear (Clear) 06/11/19 22:03 Urine pH 5.5 (4.5-7.5) 06/11/19 22:03 Ur Specific Randolph 1.022 (1.000-1.030) 06/11/19 22:03 Urine Protein Negative (Negative) 06/11/19 22:03 Urine Glucose (UA) Negative (Negative) 06/11/19 22:03 Urine Ketones 4+ (Negative) H 06/11/19 22:03 Urine Nitrite Negative (Negative) 06/11/19 22:03 Ur Leukocyte Esterase Negative (Negative) 06/11/19 22:03
[2019-06-13] MEDS: ACETAMINOPHEN 325 MG TAB PO PRN (20:53)
[2019-06-14] MEDS: MoRPHine SULFATE 4 MG/ML 1 ML CARP\\VIAL IV PRN ×2 (02:54→17:33)
[2019-06-14] MEDS: SODIUM CHLORIDE 0.9% 1000ML 1,000 ML IV SCH ×3 (04:55→17:27)
[2019-06-14 05:30] LABS: Basophils # (auto) 0.04 K/uL (0-0.2); Basophils % (auto) 0.5 %; Eosinophils # (auto) 0.26 K/uL (0-0.5); Eosinophils % (auto) 3.2 %; Hematocrit (blood only) 35.8 % (42-52); Hemoglobin 12.4 g/dL (14.0-18.0); Immature Granulocytes # (auto) 0.02 K/uL (0.00-0.02); Immature Granulocytes % (auto) 0.2 %; Lymphocytes # (auto) 1.78 K/uL (1.2-3.4); Lymphocytes % (auto) 22.1 %; Mean Corpuscular Hgb Conc 34.6 g/dL (32-36); Mean Corpuscular Volume 95.2 fL (80-100); Mean Platelet Volume 10.4 fL (7.4-10.4); Monocytes # (auto) 0.79 K/uL (0.11-0.59); Monocytes % (auto) 9.8 %; Neutrophils # (auto) 5.16 K/uL (1.4-6.5); Neutrophils % (auto) 64.2 %; Platelet Count 179 K/uL (130-400); RDW Coefficient of Variation 12.8 % (11.5-14.5); RDW Standard Deviation 44.3 fL (36.4-46.3); Red Blood Count 3.76 M/uL (4.7-6.1); White Blood Count 8.05 K/uL (4.8-10.8)
[2019-06-14 05:42] LABS: Prothrombin Time 9.8 Seconds (9.0-12.0)
[2019-06-14 06:00] LABS: BUN Creatinine Ratio 10.5 (10-20); Calcium 7.9 mg/dl (8.5-10.1); Creatinine Clr Calc Pharmacy 124.6 ml/min; Est GFR (African American) 132.3; Est GFR (Non-African American) 114.2; Potassium 3.7 mmol/L (3.5-5.1)
[2019-06-14] MEDS: OXYCODONE HCL IR 5 MG TAB (IMMEDIATE RELEASE) PO PRN ×3 (07:31→23:40)
[2019-06-14] MEDS: THIAMINE HCL 100 MG TAB PO SCH (07:33)
[2019-06-14] MEDS: FOLIC ACID 1 MG TAB PO SCH (07:33)
[2019-06-14] MEDS: GABAPENTIN 600 MG TAB PO SCH (07:33)
[2019-06-14] MEDS: PANTOprazole 40 MG TAB PO SCH (07:33)
[2019-06-14] MEDS ORDERED: fentaNYL citrate 100 MCG/2 ML VIAL IV PRN (12:24)
[2019-06-14] MEDS ORDERED: ePHEDrine sulfate 50 MG/ML AMP IV PRN (12:24)
[2019-06-14] MEDS ORDERED: ONDANSETRON INJ 2 MG/ML 2 ML VIAL IV PRN ×2 (12:24→16:58)
[2019-06-14] MEDS ORDERED: ATROPINE SULFATE 0.1 MG/ML 10ML SYR IV PRN (12:24)
[2019-06-14] MEDS ORDERED: BUPIVACAINE 0.5 % 5 MG/1 ML MPF 30ML VIAL ONE (13:05)
[2019-06-14] MEDS ORDERED: BACITRACIN INJ 50,000 UNIT VIAL ONE (13:05)
[2019-06-14] MEDS ORDERED: PROPOFOL IV EMULSION 10 MG/ML 20 ML VIAL IV ONE (13:09)
[2019-06-14] MEDS ORDERED: LIDOCAINE HCL 2% 2 ML VIAL/AMP(20MG/ML) INFIL ONE (13:09)
[2019-06-14] MEDS ORDERED: ONDANSETRON INJ 2 MG/ML 2 ML VIAL ONE (13:09)
[2019-06-14] MEDS ORDERED: DEXAMETHASONE SOD INJ 4 MG/ML VIAL ONE (13:09)
[2019-06-14] MEDS ORDERED: fentaNYL citrate 100 MCG/2 ML VIAL ONE ×2 (13:10→13:58)
[2019-06-14] MEDS ORDERED: MIDAZOLAM HCL 1 MG/ML 2ML VIAL ONE (13:10)
--- NOTE | 2019-06-14 13:24 | Orthopedic Progress Note ---
Date of Service June 14, 2019 Assessment & Plan (1) Closed fracture of left tibial plateau: I have indicated the patient for open reduction internal fixation of left tibial plateau. The risk benefits complications alternatives of surgery were expanded the patient detail. These include however not limited to infections, blood clots, acute blood loss, injury to surrounding nerves, bone, vessels, soft tissue. Malunion, nonunion, arthrofibrosis, post traumatic arthritis, failure of the implants, need for repeat surgery, chronic pain, loss of limb and loss of life. The patient wished to proceed with surgical intervention and informed consent was obtained at this time. Subjective Patient was seen in preoperative holding, comfortable, pain well controlled, no acute issues. N.p.o. for surgery. Review of Systems Review of Systems: All systems reviewed & are unremarkable except as noted in HPI & below Constitutional: as per Subjective / HPI Physical Exam Physical Exam: LLE NVSI +EHL/FHL/TA/GS SILT grossly, +2 DP pulse, compartments soft compressible, tenderness over the fracture site, positive wrinkle sign 4 out of 5 muscle strength to tibialis anterior and EHL, sensory intact to light touch grossly. Constitutional: WD/WN, vitals as above Results & Data Vital Signs (Past 12 Hours) Vital Signs Temp Pulse Resp BP Pulse Ox 06/14/19 11:35 37.3 C 90 18 128/94 95 06/14/19 07:12 36.9 C 72 16 133/87 94 (1) Closed fracture of left tibial plateau Encounter type: initial encounter Qualified Code(s): S82.142A - Displaced bicondylar fracture of left tibia, initial encounter for closed fracture
--- NOTE | 2019-06-14 13:27 | History & Physical Bridge Note ---
Date of Service June 14, 2019 History & Physical Bridge Note I have examined the patient, reviewed the History & Physical and in the interval since the performance of the History & Physical I have noted the following changes of clinical significance: no changes noted
[2019-06-14] MEDS ORDERED: BUPIVACAINE/EPINEPHRINE 0.5% MPF 1:200,000 30 ML VIAL ONE (14:02)
[2019-06-14] MEDS ORDERED: HYDROmorphone INJ 2 MG/ML SYR/VIAL ONE (15:03)
--- NOTE | 2019-06-14 15:18 | Hospitalist Progress Note ---
Date of Service June 14, 2019 Assessment & Plan (1) Fracture of tibia, proximal, left, closed: (2) Closed fracture of fibula, proximal, left: Pt presented with fall from 8 foot ladder. Remembers fall and does not think had LOC. CT HEAD: No acute intracranial findings CT C-SPINE:No evidence of acute fracture or traumatic subluxation. CT L-SPINE: No fractures or subluxations are visualized. LEFT KNEE XRAY: Lipohemarthrosis. Comminuted proximal tibial fracture with a longitudinal component involving the lateral tibial plateau. Comminuted proximal fibular fracture LEFT KNEE CT: Lipohemarthrosis. Impacted fracture of the proximal tibial metaphysis with 1 cm of foreshortening. There are longitudinal fracture components which involve both the medial and lateral tibial plateaus. Comminuted proximal fibular head and neck fracture LEFT FEMUR XRAY: No evidence of femoral fracture PELVIS XRAY: No fractures identified. Complains of pain in left knee joint Appreciate Ortho input and recommendation; likely to need some kind of surgery to stabilize left knee There is no contraindication for proposed surgery ORIF of left tibial plateau fracture tomorrow around 1 PM Denies any other symptoms except left knee pain Awaiting surgery this afternoon Continue current pain medications (3) Hypokalemia: K: 3.4 -Replace and monitor -Normalized (4) GERD (gastroesophageal reflux disease): -Continue PPI (5) Alcohol use: 6 beers/day. Denies hx ETOH withdrawal. Last drink 1pm today -Gabapentin withdrawal protocol with Ativan prn -Alcohol cessation/cutting back recommended -He does not drink alcohol regularly and has had weeks without it without any problem before -Likely not to have any withdrawal symptoms in the hospital but precautions have been taken to avoid it if it happens to be -No signs and/or symptoms of withdrawal (6) Tobacco use: -Denies nicotine patch -Smoking cessation recommended DVT Prophylaxis -SCDs to R leg Follows with Dr Campo at [facility] for routine care ORIF of his left tibial plateau fracture today 06/14 Subjective 06/12 The patient was seen and examined in medical floor He is a status post fall with fracture of left proximal tibia and fibula Has been complaining of more pain No palpitation and no tremor 06/13 The patient was seen and examined in medical floor He has been complaining of ongoing pain in the left leg Denies any palpitation and/or tremor No fever and/or chills 06/14 The patient was seen and examined in medical floor He remains stable Complains some pain in the left leg at the fracture site Denies any other symptoms Review of Systems Review of Systems: All systems reviewed and are unremarkable except as noted. Musculoskeletal: + joint pain (Left knee pain) Physical Exam Physical Exam: Lying in bed comfortably Constitutional: well developed and well nourished; no acute distress and not ill appearing Eyes: PERRL, conjunctivae normal, anicteric sclerae ENMT: external ear and nose normal, oropharynx normal Neck: trachea midline, no thyromegaly Respiratory: normal respiratory effort Auscultation: lungs clear to auscultation bilaterally Cardiovascular: Rate/Rhythm: regular rate and regular rhythm Heart Sounds: no murmur Gastrointestinal (Abdomen): Inspection/Auscultation: abdomen normal to inspection and normal bowel sounds Percussion/Palpation: abdomen soft Musculoskeletal: Left knee pain with any movement of the left leg Neurologic: moves all extremities; no focal motor deficits Motor/Sensory: no tremor Psychiatric: A+Ox3, euthymic affect Lymphatic: no cervical or axillary lymphadenopathy Results & Data Vital Signs (Past 12 Hours) Vital Signs Temp Pulse Resp BP Pulse Ox 06/14/19 11:35 37.3 C 90 18 128/94 95 06/14/19 07:12 36.9 C 72 16 133/87 94 Laboratory Results Short CBC 06/14/19 Range/Units 05:12 WBC 8.05 (4.8-10.8) K/uL Hgb 12.4 L (14.0-18.0) g/dL Hct 35.8 L (42-52) % Plt Count 179 (130-400) K/uL BMP 06/14/19 05:12 Sodium 141 Potassium 3.7 Chloride 108 H Carbon Dioxide 29 BUN 7 Creatinine 0.64 Glucose 95 Calcium 7.9 L Medications Administered Current Inpatient Medications Acetaminophen (Tylenol) 650 mg PO Q4H PRN PRN Reason: pain/fever Stop: 07/11/19 20:58 Last Admin: 06/13/19 20:53 Dose: 650 mg Documented by: Atropine Sulfate (Atropine Sulfate) 0.5 mg IV Q1M PRN PRN Reason: PACU Use-HR<40 &/or Bradycardi Stop: 06/14/19 17:24 Ephedrine Sulfate (Ephedrine Sulfate) 5 mg IV Q5M PRN PRN Reason: PACU Use Only-SBP<90 mmHg Stop: 06/14/19 17:24 Fentanyl Citrate (Fentanyl Citrate) 50 mcg IV Q5M PRN PRN Reason: PACU Use Only-Pain Stop: 06/14/19 17:24 Folic Acid (Folvite) 1 mg PO QAM [facility] Stop: 07/12/19 08:59 Last Admin: 06/14/19 07:33 Dose: 1 mg Documented by: Gabapentin (Neurontin) 600 mg PO Q24H [facility] Stop: 06/15/19 10:01 Sodium Chloride (Nss 1000ml) 1,000 mls @ 125 mls/hr IV .Q8H [facility] Stop: 07/12/19 00:44 Last Infusion: 06/14/19 12:47 Dose: 0 mls/hr Documented by: Lorazepam (Ativan) 1 mg PO ONE PRN; Protocol PRN Reason: EtoH Withdrawal AWSS 6-10 Morphine Sulfate (Morphine Sulfate) 3 mg IV Q3HWA PRN PRN Reason: Severe Pain Stop: 06/25/19 20:58 Last Admin: 06/14/19 02:54 Dose: 3 mg Documented by: Ondansetron HCl (Zofran) 4 mg IV Q6H PRN PRN Reason: Nausea Stop: 07/11/19 20:58 Ondansetron HCl (Zofran) 4 mg IV ONCE PRN PRN Reason: PACU Use Only-Nausea/Vomiting Stop: 06/14/19 17:25 Oxycodone HCl (Roxicodone Immediate Rel) 5 mg PO Q6H PRN PRN Reason: Moderate Pain Stop: 06/25/19 20:58 Last Admin: 06/14/19 07:31 Dose: 5 mg Documented by: Pantoprazole Sodium (Protonix) 40 mg PO DAILY [facility] Stop: 07/12/19 08:59 Last Admin: 06/14/19 07:33 Dose: 40 mg Documented by: Thiamine HCl (Vitamin B-1) 100 mg PO QAM [facility] Stop: 07/12/19 08:59 Last Admin: 06/14/19 07:33 Dose: 100 mg Documented by:
--- NOTE | 2019-06-14 15:23 | Fluoroscopy Report ---
FL tibia/fibula LT 2V CLINICAL HISTORY: LT ORIF TIBIAL PLATEAU COMPARISON STUDY: Left knee 06/11/2019. FLUOROSCOPY TIME: 1 minute and 22 seconds. FINDINGS: 2 fluoroscopic spot images of the left lower leg demonstrate a lateral cortical plate trans fixed with screws bridging the tibial fracture. The hardware appears intact. Alignment is near-anatom ic. There is also displaced fracture at the fibular head/neck. IMPRESSION: Fluoroscopy provided for internal fixation of a left tibial plateau fracture. Electronically signed by: Eric Duong M.D. 06/14/2019 3:22 PM
--- NOTE | 2019-06-14 15:24 | Post Operative Brief Note ---
Immediate Post Op Note v1 Date of Surgery June 14, 2019 Pre & Post Diagnosis Operation Date: 06/13/19 14:00 <No data on this case meets the specified criteria> Operation Date: 06/14/19 13:00 Pre-Op Diagnosis: Closed fracture of left tibial plateau Post-Op Diagnosis: Closed fracture of left tibial plateau Procedure Operation Date: 06/13/19 14:00 <No data on this case meets the specified criteria> Operation Date: 06/14/19 13:00 Actual Procedures p Left Tibial Plateau Fracture Open Reduction Internal Fixation(Left) - Carlos Doe DO Surgeon Carlos Doe DO Orchid Superintendent Kameron Garcia Estimated Blood Loss 75 Findings Consistent with Post-Op Diagnosis Fluids 1400 cc LR Drains Hemovac Drain Anesthesia Type General Complications none Disposition Disposition: Recovery Room Overlapping Procedure I was present for: the critical portions of procedure. I was immediately available: during the entire case. Back up surgeon: was not required during procedure.
--- NOTE | 2019-06-14 16:27 | XRay Report ---
XR knee LT 2V routine CLINICAL HISTORY: 48 years-old Male presenting with post op ORIF tib plateau. TECHNIQUE: Frontal and crosstable lateral views of the left knee were obtained. COMPARISON: Plain radiographs and 06/11/2019. FINDINGS: Buttress plate and screw fixation of the comminuted tibial plateau fracture involving both the medial and lateral metaphysis with intra-articular extension in the intercondylar region and lateral tibial plateau. No significant residual malalignment of the previously displaced lateral tibial plateau fra cture fragment. Redemonstration of the comminuted fibular head fracture, which is unchanged. The knee joint is congruent. There is less than 2 mm of articular cartilage step-off at the lateral tibial pl ateau. An intra-articular fracture plane is not perceptible in the medial tibial plateau. Expected in tra-articular and soft tissue emphysema. A knee joint effusion may be present. Surgical drain in plac e. Overlying skin ruby. IMPRESSION: Expected postsurgical appearance status post plate and screw fixation of the tibial plateau fracture. No malalignment. Electronically signed by: Pelon Ramos M.D. 06/14/2019 4:26 PM
--- NOTE | 2019-06-14 16:37 | Orthopedic Progress Note ---
Date of Service June 14, 2019 Assessment & Plan (1) Closed fracture of left tibial plateau: Status post ORIF left tibial plateau -Ancef x24 -DVT prophylaxis: SCDs, teds, Lovenox daily -Nonweightbearing left lower extremity -PT/OT -Monitor drain output -Ice and elevation -Postoperative x-ray demonstrates well aligned well fixed orthopedic implants, anatomic alignment of the fracture. No new fracture or dislocation. -A.m. labs Subjective Post Operative Progress Note Patient seen in PACU, comfortable, denies complaints, pain well controlled, no acute issues. Review of Systems Review of Systems: All systems reviewed & are unremarkable except as noted in HPI & below Constitutional: as per Subjective / HPI Physical Exam Physical Exam: LLE NVSI +EHL/FHL SILT grossly, +2 DP pulse, compartments soft NT, dressing cdi. HMV drain intact. Constitutional: WD/WN, vitals as above Results & Data Vital Signs (Past 12 Hours) Vital Signs Temp Pulse Pulse Resp BP Pulse Ox 06/14/19 16:30 36.3 C L 80 18 120/89 95 06/14/19 16:20 76 17 131/85 90 06/14/19 16:10 77 20 135/97 93 06/14/19 16:00 77 15 125/88 97 06/14/19 15:50 36.6 C 79 16 136/94 96 06/14/19 11:35 37.3 C 90 18 128/94 95 06/14/19 07:12 36.9 C 72 16 133/87 94 (1) Closed fracture of left tibial plateau Encounter type: initial encounter Qualified Code(s): S82.142A - Displaced bicondylar fracture of left tibia, initial encounter for closed fracture
--- NOTE | 2019-06-14 16:38 | Operative Report ---
Post Operative Report Pre & Post Diagnosis Operation Date: 06/13/19 14:00 <No data on this case meets the specified criteria> Operation Date: 06/14/19 13:00 Pre-Op Diagnosis: Closed fracture of left tibial plateau Post-Op Diagnosis: Closed fracture of left tibial plateau I personally identified the patient: Yes Procedure Operation Date: 06/13/19 14:00 <No data on this case meets the specified criteria> Operation Date: 06/14/19 13:00 Actual Procedures p Left Tibial Plateau Fracture Open Reduction Internal Fixation(Left) - Carlos Doe DO Surgeon Carlos Doe DO Printing Manager Kameron Garcia Estimated Blood Loss 75 Findings Consistent with Post-Op Diagnosis Fluids 1400 cc LR Specimens None Drains Hemovac drain superficial Anesthesia Type General Complications none Indications The patient is a 48-year-old gentleman who suffered an 8- to 10-foot fall from a ladder injuring primarily his left knee/lower extremity. He denies any loss of consciousness. He denies any significant head, neck or back pain. He was brought to the [facility] ED for evaluation. X-rays revealed a left proximal tibia and fibular fracture. He was admitted by the medical service for further inpatient observation and treatment. The patient denies any other significant medical history other than GERD. 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 He is single and lives alone. I have indicated the patient for open reduction internal fixation of left tibial plateau. The risk benefits complications alternatives of surgery were expanded the patient detail. These include however not limited to infections, blood clots, acute blood loss, injury to surrounding nerves, bone, vessels, soft tissue. Malunion, nonunion, arthrofibrosis, post traumatic arthritis, failure of the implants, need for repeat surgery, chronic pain, loss of limb and loss of life. The patient wished to proceed with surgical intervention and informed consent was obtained at this time. Description of Procedure Description of Procedure Implants: 6 hole left 3.5 LCP proximal tibial locking plate 75mm 3.5mm Locking screw x 4 70mm 3.5mm Locking screw x 1 65mm 3.5mm Locking screw x 2 34mm 3.5 Cortex screw x 2 32mm 3.5 Cortex screw x 1 The patient was brought to the OR and transferred to the OR table in the supine position. After general anesthesia was induced a non-sterile tourniquet and padding was placed on the proximal thigh. The left lower extremity was prepped and draped in usual sterile fashion. A time out was performed, the patient was identified, site emilee verified. The leg was wrapped with esmarch bandage and the tourniquet was inflated to 300 mmHg. Next, a standard hockey stick anterolateral approach to the lateral tibial plateau was performed through skin and subcutaneous tissue and carried down to IT band. Adequate hemostasis was performed with electrocautery. A longitudinal split was made in the IT band inline with the incision and carried down to bone. A comminuted split depression fracture of the lateral tibial plateau was encountered. Care was taken to remove soft tissue at the fracture site and utilizing lei elevator the fracture site was opened anteriorly and hematoma/debris removed. Next, using 11 scapel blade a stab incision was made medially overlying the medial tibial plateau fracture and dissection carried down to bone with hemostat. A 6 hole Synthes 3.5 LCP proximal tibial locking plate was fashioned to the lateral aspect of the tibial plateau. Utilizing the ball tip large reduction clamps, under direct visualization and C-arm fluoroscopy the plate and medial and lateral tibial condyles were reduced and position of the fractures and plate were confirmed. Once satisfied with the reduction and plate positioning the plate was held in place proximally with two k-wires. The plate position was verified in the AP and lateral planes utilizing C-arm fluoroscopy and position was acceptable. One cortical screw was placed distal to aid in reduction of the plate to the bone and four proximal locking screws w ere placed proximally. I then removed the ball tip bone reduction clamp. Next angled locking screw holes were filled with locking screws. The remaining shaft holes distally were filled with cortical screws. All screws were placed in standard AO fashion. Next, K-wires that were initially placed were removed. C- arm fluoroscopy was used to confirm anatomic position of the articular surface on both the AP and lateral fluoroscopic images, as well as positioning of all screws and hardware. Next, the wounds were thoroughly irrigated with sterile saline with bacitracin. The IT band and deep tissue was closed with 1 Vicryl suture in [id number] fashion. A HMV drain was placed in the subcutaneous tissue. Next, the subcutaneous layers was closed with 2-0 Vicryl sutures and ruby for the skin. Sterile dressings were applied which included xeroform, 4x4, abds, drain sponge, webrill and wu wrap. The patient was placed into a knee immobilizer. The tourniquet was deflated at 78 minutes. The patient was awoken in the operating room and transported to the PACU in stable condition. The patient tolerated the procedure well and was without apparent complication. Due to the complex nature of the procedure, the entire surgery was performed with the operational assistance of Kameron Garcia PA-C. The horticultural nursery assistant, under direct supervision, was involved in the actual performance of all aspects of the surgical procedure including patient positioning, hemostasis, tissue retraction, instrument management and wound closure. I attest to the content of the Intraoperative Record and any orders documented therein. Any exceptions are noted below.
[2019-06-14] MEDS ORDERED: HYDROmorphone INJ 0.5 MG/0.5 ML SYR IV PRN (16:58)
[2019-06-14] MEDS ORDERED: MAGNESIUM HYDROXIDE SUSP 30 ML UDC PO PRN (16:58)
[2019-06-14] MEDS ORDERED: NALOXONE HCL 0.4 MG/1 ML VIAL/CARP IV PRN (16:58)
[2019-06-14] MEDS ORDERED: bisacodyL 10 MG SUPP PR PRN (16:58)
[2019-06-14] MEDS ORDERED: METOCLOPRAMIDE HCL INJ 5 MG/ML 2 ML VIAL IV PRN (16:58)
[2019-06-14] MEDS ORDERED: SODIUM CHLORIDE 0.9% 1000ML 1,000 ML IV SCH (16:58)
--- NOTE | 2019-06-14 17:07 | Anesthesiology Progress Note ---
Date of Service June 14, 2019 Anesthesia Post Procedure Vital Signs Vital Signs: Temp Pulse Pulse Resp BP Pulse Ox 06/14/19 17:01 36.7 C 74 16 137/88 92 06/14/19 16:40 77 12 127/95 94 06/14/19 16:30 36.3 C L 80 18 120/89 95 06/14/19 16:20 76 17 131/85 90 06/14/19 16:10 77 20 135/97 93 06/14/19 16:00 77 15 125/88 97 06/14/19 15:50 36.6 C 79 16 136/94 96 06/14/19 11:35 37.3 C 90 18 128/94 95 06/14/19 07:12 36.9 C 72 16 133/87 94 06/13/19 23:38 37.2 C 79 16 115/76 96 Pain Intensity Left Leg: Pain Intensity: 2 Transfer of Care Handoff Completed per policy Notes Mental Status: alert / awake / arousable and participated in evaluation Patient Amnestic to Procedure: Yes Nausea / Vomiting: adequately controlled Pain: adequately controlled Airway Patency, RR, SpO2: stable & adequate BP & HR: stable & adequate Hydration State: stable & adequate Anesthetic Complications: no major complications apparent
[2019-06-14] MEDS: CEFAZOLIN 2000MG 2,000 MG/15 ML SYR IV SCH (18:15)
[2019-06-14] MEDS: ACETAMINOPHEN 1,000 MG/100 ML VIAL IV SCH (20:02)
[2019-06-14] MEDS: DOCUSATE SODIUM 100 MG CAP PO SCH (20:03)
[2019-06-14] MEDS: SENNA 8.6 MG TAB PO SCH (20:04)
[2019-06-15] MEDS: CEFAZOLIN 2000MG 2,000 MG/15 ML SYR IV SCH (03:25)
[2019-06-15] MEDS: ACETAMINOPHEN 1,000 MG/100 ML VIAL IV SCH ×2 (03:25→11:34)
[2019-06-15 06:00] LABS: Hematocrit (blood only) 35.3 % (42-52); Hemoglobin 12.2 g/dL (14.0-18.0); Mean Corpuscular Hemoglobin 32.9 pg (25-34); Mean Corpuscular Hgb Conc 34.6 g/dL (32-36); Mean Corpuscular Volume 95.1 fL (80-100); Mean Platelet Volume 10.6 fL (7.4-10.4); Platelet Count 233 K/uL (130-400); RDW Coefficient of Variation 12.7 % (11.5-14.5); RDW Standard Deviation 44.2 fL (36.4-46.3); Red Blood Count 3.71 M/uL (4.7-6.1); White Blood Count 13.63 K/uL (4.8-10.8)
[2019-06-15 06:31] LABS: BUN Creatinine Ratio 11.6 (10-20); Calcium 8.6 mg/dl (8.5-10.1); Creatinine Clr Calc Pharmacy 90.6 ml/min; Est GFR (African American) 116.1; Est GFR (Non-African American) 100.2; Potassium 3.9 mmol/L (3.5-5.1)
[2019-06-15] MEDS: PANTOprazole 40 MG TAB PO SCH (07:32)
[2019-06-15] MEDS: THIAMINE HCL 100 MG TAB PO SCH (07:32)
[2019-06-15] MEDS: FOLIC ACID 1 MG TAB PO SCH (07:32)
[2019-06-15] MEDS: ENOXAPARIN INJ 40 MG/0.4 ML SYR SQ SCH (07:33)
[2019-06-15] MEDS: MULTIVITAMIN TAB PO SCH (07:33)
[2019-06-15] MEDS: DOCUSATE SODIUM 100 MG CAP PO SCH ×2 (07:33→20:43)
[2019-06-15] MEDS: OXYCODONE HCL IR 5 MG TAB (IMMEDIATE RELEASE) PO PRN ×4 (07:34→20:45)
--- NOTE | 2019-06-15 08:21 | Orthopedic Progress Note ---
Date of Service June 15, 2019 Assessment & Plan (1) Closed fracture of left tibial plateau: POD 1 Status post ORIF left tibial plateau -Ancef x24, then dc -DVT prophylaxis: SCDs, teds, Lovenox daily -Nonweightbearing left lower extremity -PT/OT -Monitor drain output - 100ml latest shift: keep drain in for now and recheck later today -Ice and elevation -Postoperative x-ray demonstrates well aligned well fixed orthopedic implants, anatomic alignment of the fracture. No new fracture or dislocation. -A.m. labs - Hgb 12.2 Supervising Physician Co-Signing Physician Notes Patient seen and examined, agree with above assessment and plan. Subjective POD 1 s/p ORIF Left Tibial Plateau Fx Pt sitting up in bed. Nursing present taking care of needs. Having pain this AM but tolerating well. Feels it's mainly from the immobilizer being too tight. No other complaints. Denies SOB, CP, LH. Discussed surgery and post op planning. All questions answered. Review of Systems Review of Systems: All systems reviewed & are unremarkable except as noted in HPI & below Constitutional: as per Subjective / HPI Physical Exam Physical Exam: Dressings are C/D/I. Calves are soft,NT. Anterior compartments compressible but tender. Able to DF/PF ankle/toes. No increased pain with passive DF of the ankle or Great toe. Sensation intact. Drained 100ml from HV latest shift. Constitutional: WD/WN, vitals as above Results & Data Vital Signs (Past 12 Hours) Vital Signs Temp Pulse Resp BP Pulse Ox 06/15/19 07:39 36.5 C 76 120/80 96 06/15/19 03:23 36.7 C 92 H 16 115/73 96 06/14/19 23:05 36.9 C 102 H 18 111/72 95 Laboratory Results Laboratory Results WBC 13.63 K/uL (4.8-10.8) H 06/15/19 05:46 RBC 3.71 M/uL (4.7-6.1) L 06/15/19 05:46 Hgb 12.2 g/dL (14.0-18.0) L 06/15/19 05:46 Hct 35.3 % (42-52) L 06/15/19 05:46 MCV 95.1 fL (80-100) 06/15/19 05:46 MCH 32.9 pg (25-34) 06/15/19 05:46 MCHC 34.6 g/dL (32-36) 06/15/19 05:46 RDW Std Deviation 44.2 fL (36.4-46.3) 06/15/19 05:46 RDW Coeff of Kali 12.7 % (11.5-14.5) 06/15/19 05:46 Plt Count 233 K/uL (130-400) 06/15/19 05:46 MPV 10.6 fL (7.4-10.4) H 06/15/19 05:46 Immature Gran % (Auto) 0.2 % 06/14/19 05:12 Neut % (Auto) 64.2 % 06/14/19 05:12 Lymph % (Auto) 22.1 % 06/14/19 05:12 [place] % (Auto) 9.8 % 06/14/19 05:12 Eos % (Auto) 3.2 % 06/14/19 05:12 Baso % (Auto) 0.5 % 06/14/19 05:12 Immature Gran # (Auto) 0.02 K/uL (0.00-0.02) 06/14/19 05:12 Neut # (Auto) 5.16 K/uL (1.4-6.5) 06/14/19 05:12 Lymph # (Auto) 1.78 K/uL (1.2-3.4) 06/14/19 05:12 Pope # (Auto) 0.79 K/uL (0.11-0.59) H 06/14/19 05:12 Eos # (Auto) 0.26 K/uL (0-0.5) 06/14/19 05:12 Baso # (Auto) 0.04 K/uL (0-0.2) 06/14/19 05:12 PT 9.8 Seconds (9.0-12.0) 06/14/19 05:12 INR 1.0 (0.9-1.1) 06/14/19 05:12 Sodium 141 mmol/L (136-145) 06/15/19 05:46 Potassium 3.9 mmol/L (3.5-5.1) 06/15/19 05:46 Chloride 106 mmol/L (98-107) 06/15/19 05:46 Carbon Dioxide 28 mmol/L (21-32) 06/15/19 05:46 Anion Gap 7.0 (3-11) 06/15/19 05:46 BUN 10 mg/dl (7-18) 06/15/19 05:46 Creatinine 0.88 mg/dl (0.6-1.4) 06/15/19 05:46 Est Cr Clr Drug Dosing 90.6 ml/min 06/15/19 05:46 Est GFR ( Amer) 116.1 06/15/19 05:46 Est GFR (Non-Af Amer) 100.2 06/15/19 05:46 BUN/Creatinine Ratio 11.6 (10-20) 06/15/19 05:46 Glucose 130 mg/dl (70-99) H 06/15/19 05:46 Calcium 8.6 mg/dl (8.5-10.1) 06/15/19 05:46 Total Bilirubin 0.6 mg/dl (0.2-1) 06/11/19 16:53 AST 25 U/L (15-37) 06/11/19 16:53 ALT 33 U/L (12-78) 06/11/19 16:53 Alkaline Phosphatase 71 U/L (45-117) 06/11/19 16:53 Total Protein 6.6 gm/dl (6.4-8.2) 06/11/19 16:53 Albumin 3.6 gm/dl (3.4-5.0) 06/11/19 16:53 Globulin 3.0 gm/dl (2.5-4.0) 06/11/19 16:53 Albumin/Globulin Ratio 1.2 (0.9-2) 06/11/19 16:53 TSH 1.280 uIu/ml (0.300-4.500) 06/11/19 16:53 Urine Color Yellow 06/11/19 22:03 Urine Appearance Clear (Clear) 06/11/19 22:03 Urine pH 5.5 (4.5-7.5) 06/11/19 22:03 Ur Specific [place] 1.022 (1.000-1.030) 06/11/19 22:03 Urine Protein Negative (Negative) 06/11/19 22:03 Urine Glucose (UA) Negative (Negative) 06/11/19 22:03 Urine Ketones 4+ (Negative) H 06/11/19 22:03 Urine Blood Negative (Negative) 06/11/19 22:03 Urine Nitrite Negative (Negative) 06/11/19 22:03 Urine Bilirubin Negative (Negative) 06/11/19 22:03 Urine Urobilinogen Negative (Negative) 06/11/19 22:03 Ur Leukocyte Esterase Negative (Negative) 06/11/19 22:03 Blood Type O Positive 06/13/19 14:59 Antibody Screen NEGATIVE 06/13/19 14:59 (1) Closed fracture of left tibial plateau Encounter type: initial encounter Qualified Code(s): S82.142A - Displaced bicondylar fracture of left tibia, initial encounter for closed fracture
[2019-06-15] MEDS ORDERED: GABAPENTIN 600 MG TAB PO SCH (10:00)
[2019-06-15] MEDS: ACETAMINOPHEN 325 MG TAB PO PRN (17:24)
--- NOTE | 2019-06-15 17:47 | Hospitalist Progress Note ---
Date of Service June 15, 2019 Assessment & Plan (1) Fracture of tibia, proximal, left, closed: (2) Closed fracture of fibula, proximal, left: Pt presented with fall from 8 foot ladder. Remembers fall and does not think had LOC. CT HEAD: No acute intracranial findings CT C-SPINE:No evidence of acute fracture or traumatic subluxation. CT L-SPINE: No fractures or subluxations are visualized. LEFT KNEE XRAY: Lipohemarthrosis. Comminuted proximal tibial fracture with a longitudinal component involving the lateral tibial plateau. Comminuted proximal fibular fracture LEFT KNEE CT: Lipohemarthrosis. Impacted fracture of the proximal tibial metaphysis with 1 cm of foreshortening. There are longitudinal fracture components which involve both the medial and lateral tibial plateaus. Comminuted proximal fibular head and neck fracture LEFT FEMUR XRAY: No evidence of femoral fracture PELVIS XRAY: No fractures identified. S/P day#1 Left Tibial Plateau Fracture Open Reduction Internal Fixation performed by Dr. Carlos Doe, DO No postop complication Continue pain control PT/OT eval Nonweightbearing left lower extremity hemoglobin stable Continue Incentive spirometry Fall precaution (3) Hypokalemia: K: 3.9 today Stable (4) GERD (gastroesophageal reflux disease): Continue PPI (5) Alcohol use: 6 beers/day. Last drink on 06/11 Denies hx ETOH withdrawal. No signs of alcohol withdrawn Counseling on alcohol cessation Continue Folic acid and thiamine (6) Tobacco use: Denies nicotine patch Counseling on smoking cessation DVT Prophylaxis on Lovenox suq CODE STATUS FULL CODE Disposition Will discharge once stable from ortho standpoint Subjective Pt was seen and examined Lying in bed with no distress Pt said that early today he had so much pain He said that he continues to have pain Denies any chest pain, palpitation, dizziness and SOB Physical Exam Physical Exam: General- No acute distress Head- atraumatic Eyes- PERRL, EOMI, ENT- oropharynx clear Neck- supple, no JVD Lungs- clear to auscultation Heart- regular rhythm; no murmur Abdomen- normal bowel sounds, soft, nontender Extremities- no calf tenderness, Left LE tenderness Neuro- alert, oriented x 3; PERRL, EOMI; no facial palsy; no dysarthria Skin- warm & dry Results & Data Vital Signs (Past 12 Hours) Vital Signs Temp Pulse Resp BP BP Pulse Ox 06/15/19 15:38 95 06/15/19 15:01 36.8 C 83 18 121/76 96 06/15/19 07:39 36.5 C 76 120/80 96
[2019-06-15] MEDS: SENNA 8.6 MG TAB PO SCH (20:43)
[2019-06-15] MEDS: MoRPHine SULFATE 4 MG/ML 1 ML CARP\\VIAL IV PRN (23:42)
[2019-06-16] MEDS: OXYCODONE HCL IR 5 MG TAB (IMMEDIATE RELEASE) PO PRN ×5 (00:46→20:09)
[2019-06-16 06:00] LABS: Hematocrit (blood only) 34.8 % (42-52); Hemoglobin 12.1 g/dL (14.0-18.0); Mean Corpuscular Hemoglobin 33.6 pg (25-34); Mean Corpuscular Hgb Conc 34.8 g/dL (32-36); Mean Corpuscular Volume 96.7 fL (80-100); Mean Platelet Volume 10.6 fL (7.4-10.4); Platelet Count 242 K/uL (130-400); RDW Coefficient of Variation 13.1 % (11.5-14.5); RDW Standard Deviation 46.3 fL (36.4-46.3); White Blood Count 10.48 K/uL (4.8-10.8)
[2019-06-16 06:29] LABS: Potassium 3.7 mmol/L (3.5-5.1)
[2019-06-16 06:30] LABS: BUN Creatinine Ratio 17.8 (10-20); Calcium 8.4 mg/dl (8.5-10.1); Creatinine Clr Calc Pharmacy 106.3 ml/min
[2019-06-16] MEDS: MoRPHine SULFATE 4 MG/ML 1 ML CARP\\VIAL IV PRN (08:13)
[2019-06-16] MEDS: THIAMINE HCL 100 MG TAB PO SCH (08:14)
[2019-06-16] MEDS: ENOXAPARIN INJ 40 MG/0.4 ML SYR SQ SCH (08:14)
[2019-06-16] MEDS: FOLIC ACID 1 MG TAB PO SCH (08:14)
[2019-06-16] MEDS: DOCUSATE SODIUM 100 MG CAP PO SCH ×2 (08:14→20:15)
[2019-06-16] MEDS: MULTIVITAMIN TAB PO SCH (08:14)
[2019-06-16] MEDS: PANTOprazole 40 MG TAB PO SCH (08:14)
--- NOTE | 2019-06-16 12:04 | Orthopedic Progress Note ---
Date of Service June 16, 2019 Assessment & Plan (1) Closed fracture of left tibial plateau: POD 2 Status post ORIF left tibial plateau -DVT prophylaxis: SCDs, teds, Lovenox daily -Nonweightbearing left lower extremity -PT/OT -Monitor drain output - 100ml latest shift: keep drain in for now and recheck later today -Ice and elevation -Postoperative x-ray demonstrates well aligned well fixed orthopedic implants, anatomic alignment of the fracture. No new fracture or dislocation. - Looking to get into [facility] prior to going home. Will await CM input. Subjective POD 2 s/p ORIF Left Tibial Plateau Fracture Pt sitting up in bed awake and alert. Painful when getting out of bed. Better when he's up ambulating. Currently pain controlled. States he's trying to get into [facility]. Pt lives alone and feels he will not be able to get around on his own. Physical Exam Physical Exam: Wound benign. Compartments soft but tender. NV intact. Toes mobile. No erythema noted. Results & Data Vital Signs (Past 12 Hours) Vital Signs Temp Pulse Resp BP Pulse Ox 06/16/19 07:15 37 C 82 18 128/82 94 (1) Closed fracture of left tibial plateau Encounter type: initial encounter Qualified Code(s): S82.142A - Displaced bicondylar fracture of left tibia, initial encounter for closed fracture
--- NOTE | 2019-06-16 17:48 | Hospitalist Progress Note ---
Date of Service June 16, 2019 Assessment & Plan (1) Fracture of tibia, proximal, left, closed: (2) Closed fracture of fibula, proximal, left: Pt presented with fall from 8 foot ladder. Remembers fall and does not think had LOC. CT HEAD: No acute intracranial findings CT C-SPINE:No evidence of acute fracture or traumatic subluxation. CT L-SPINE: No fractures or subluxations are visualized. LEFT KNEE XRAY: Lipohemarthrosis. Comminuted proximal tibial fracture with a longitudinal component involving the lateral tibial plateau. Comminuted proximal fibular fracture LEFT KNEE CT: Lipohemarthrosis. Impacted fracture of the proximal tibial metaphysis with 1 cm of foreshortening. There are longitudinal fracture components which involve both the medial and lateral tibial plateaus. Comminuted proximal fibular head and neck fracture LEFT FEMUR XRAY: No evidence of femoral fracture PELVIS XRAY: No fractures identified. S/P day#2 Left Tibial Plateau Fracture Open Reduction Internal Fixation performed by Dr. Carlos Doe, DO No postop complication Continue pain control PT/OT eval Nonweightbearing left lower extremity hemoglobin stable Continue Incentive spirometry Fall precaution Waiting for placement to rehab (3) Hypokalemia: K: 3.9 Stable (4) GERD (gastroesophageal reflux disease): Continue PPI (5) Alcohol use: 6 beers/day. Last drink on 06/11 Denies hx ETOH withdrawal. No signs of alcohol withdrawn Counseling on alcohol cessation Continue Folic acid and thiamine (6) Tobacco use: Denies nicotine patch Counseling on smoking cessation DVT Prophylaxis on Lovenox suq CODE STATUS FULL CODE Disposition Waiting for placement to rehab Subjective Pt was seen and examined Lying in bed with no distress Pt said that continue to have pain He said that he does not think that he can go home He agreed to go to rehab Denies any chest pain, palpitation, dizziness and SOB Physical Exam Physical Exam: General- No acute distress Head- atraumatic Eyes- PERRL, EOMI, ENT- oropharynx clear Neck- supple, no JVD Lungs- clear to auscultation Heart- regular rhythm; no murmur Abdomen- normal bowel sounds, soft, nontender Extremities- no calf tenderness, Left LE tenderness Neuro- alert, oriented x 3; PERRL, EOMI; no facial palsy; no dysarthria Skin- warm & dry Results & Data Vital Signs (Past 12 Hours) Vital Signs Temp Pulse Resp BP Pulse Ox 06/16/19 15:35 36.9 C 89 18 113/77 97 06/16/19 07:15 37 C 82 18 128/82 94
[2019-06-16] MEDS: SENNA 8.6 MG TAB PO SCH (20:15)
[2019-06-17] MEDS: OXYCODONE HCL IR 5 MG TAB (IMMEDIATE RELEASE) PO PRN ×2 (01:34→12:12)
[2019-06-17 05:47] LABS: Hematocrit (blood only) 36.4 % (42-52); Hemoglobin 12.8 g/dL (14.0-18.0); Mean Corpuscular Hemoglobin 33.7 pg (25-34); Mean Corpuscular Hgb Conc 35.2 g/dL (32-36); Mean Corpuscular Volume 95.8 fL (80-100); Mean Platelet Volume 10.2 fL (7.4-10.4); Platelet Count 289 K/uL (130-400); RDW Coefficient of Variation 12.9 % (11.5-14.5); RDW Standard Deviation 44.8 fL (36.4-46.3); White Blood Count 9.26 K/uL (4.8-10.8)
[2019-06-17 06:17] LABS: BUN Creatinine Ratio 20.8 (10-20); Calcium 9.1 mg/dl (8.5-10.1); Creatinine Clr Calc Pharmacy 110.8 ml/min; Est GFR (African American) 126.1; Est GFR (Non-African American) 108.8; Potassium 3.8 mmol/L (3.5-5.1)
[2019-06-17] MEDS: DOCUSATE SODIUM 100 MG CAP PO SCH (08:36)
[2019-06-17] MEDS: MULTIVITAMIN TAB PO SCH (08:36)
[2019-06-17] MEDS: FOLIC ACID 1 MG TAB PO SCH (08:36)
[2019-06-17] MEDS: PANTOprazole 40 MG TAB PO SCH (08:36)
[2019-06-17] MEDS: THIAMINE HCL 100 MG TAB PO SCH (08:36)
[2019-06-17] MEDS: ENOXAPARIN INJ 40 MG/0.4 ML SYR SQ SCH (08:36)
[2019-06-17] MEDS: MoRPHine SULFATE 4 MG/ML 1 ML CARP\\VIAL IV PRN (08:43)
--- NOTE | 2019-06-17 10:43 | Orthopedic Progress Note ---
Date of Service June 17, 2019 Assessment & Plan (1) Closed fracture of left tibial plateau: POD 3 Status post ORIF left tibial plateau -DVT prophylaxis: SCDs, teds, Lovenox daily, switch to ASA bid when returns to home after rehab -Nonweightbearing left lower extremity -PT/OT -Ice and elevation - Approved for [facility]. Orthopedically stable for transfer. F/U with Dr Doe in 10 days. Subjective POD 3 Pt sitting up in bed. No new complaints. Pain controlled currently. States he was accepted to [facility]. Physical Exam Physical Exam: Incision benign. No drainge. Mild ecchymosis. Tenderness over the anterior compartments but has not changed. Sensation intact. Good DF of the great toe. He does dorsiflex the ankle but slowly due to causing some pain in the lower extremity. Calves soft, NT. Results & Data Vital Signs (Past 12 Hours) Vital Signs Temp Pulse Pulse Resp BP Pulse Ox 06/17/19 06:49 37.0 C 82 18 113/81 94 06/16/19 23:31 37.1 C 89 16 121/74 96 (1) Closed fracture of left tibial plateau Encounter type: initial encounter Qualified Code(s): S82.142A - Displaced bicondylar fracture of left tibia, initial encounter for closed fracture
[2019-06-17] MEDS: ACETAMINOPHEN 325 MG TAB PO PRN (13:46)
--- NOTE | 2019-06-17 14:28 | Hospitalist Progress Note ---
Date of Service June 17, 2019 Assessment & Plan (1) Fracture of tibia, proximal, left, closed: (2) Closed fracture of fibula, proximal, left: Pt presented with fall from 8 foot ladder. Remembers fall and does not think had LOC. CT HEAD: No acute intracranial findings CT C-SPINE:No evidence of acute fracture or traumatic subluxation. CT L-SPINE: No fractures or subluxations are visualized. LEFT KNEE XRAY: Lipohemarthrosis. Comminuted proximal tibial fracture with a longitudinal component involving the lateral tibial plateau. Comminuted proximal fibular fracture LEFT KNEE CT: Lipohemarthrosis. Impacted fracture of the proximal tibial metaphysis with 1 cm of foreshortening. There are longitudinal fracture components which involve both the medial and lateral tibial plateaus. Comminuted proximal fibular head and neck fracture LEFT FEMUR XRAY: No evidence of femoral fracture PELVIS XRAY: No fractures identified. S/P day#2 Left Tibial Plateau Fracture Open Reduction Internal Fixation performed by Dr. Carlos Doe, DO No postop complication Continue pain control PT/OT eval Nonweightbearing left lower extremity hemoglobin stable Continue Incentive spirometry Fall precaution Will go to rehab today (3) Hypokalemia: K: 3.9 Stable (4) GERD (gastroesophageal reflux disease): Continue PPI (5) Alcohol use: 6 beers/day. Last drink on 06/11 Denies hx ETOH withdrawal. No signs of alcohol withdrawn Counseling on alcohol cessation Continue Folic acid and thiamine (6) Tobacco use: Denies nicotine patch Counseling on smoking cessation DVT Prophylaxis on Lovenox suq CODE STATUS FULL CODE Disposition Will go to rehab today Subjective Pt was seen and examined Lying in bed with no distress Pt said that pain improves slightly Pt had therapy done today and slightly improves Denies any chest pain, palpitation, dizziness and SOB Physical Exam Physical Exam: General- No acute distress Head- atraumatic Eyes- PERRL, EOMI, ENT- oropharynx clear Neck- supple, no JVD Lungs- clear to auscultation Heart- regular rhythm; no murmur Abdomen- normal bowel sounds, soft, nontender Extremities- no calf tenderness, Left LE tenderness Neuro- alert, oriented x 3; PERRL, EOMI; no facial palsy; no dysarthria Skin- warm & dry Results & Data Vital Signs (Past 12 Hours) Vital Signs Temp Pulse Pulse Resp BP BP Pulse Ox 06/17/19 13:36 37.0 C 89 82 18 113/81 121/76 94 06/17/19 06:49 37.0 C 82 18 113/81 94
--- NOTE | 2019-06-18 23:29 | Discharge Summary ---
Date of Service June 17, 2019 Admission HPI Per Admitting Provider Pt is 48 y/o M with PMH GERD, alcohol use presented to ER with c/o fall and Left leg pain. States was approximately 8 feet above ground on ladder when he slipped and fell. Patient complains of left leg pain and unable to bear weight to left leg. Initially had low back pain but reports has since improved. Patient unsure if he hit his head. He reports remembers falling and hitting ground and then attempting to get off ground. Does not think had any LOC. patient reports drinks 6 beers a day. Reports 2 beers today and last drink around 1 PM today. Denies history of alcohol withdrawal. Patient denies heada cale, neck pain, other back pain, upper extremity pain, right lower extremity pain, hip or pelvic pain, abdominal pain, chest pain, shortness of breath, extremity paresthesias. Denies fever/chills, diaphoresis, N/V/D/C, dizziness, vision changes,orthopnea, palpitations, cough, sore throat, choking, otalgia, rhinorrhea, extremity edema, rashes, urinary symptoms. Admission Exam Per Admitting Provider General: no acute distress, appears older than stated age, WDWN Head: normocephalic, atraumatic Eyes: PERRL, EOM's intact, conjunctiva non-injected, anicteric ENT: normal inspection external ears, nose, mucous membranes moist Neck: supple, trachea midline, non-tender, ROM intact Lungs: clear, no respiratory distress, no wheezing/rhonchi/rales CV: RRR, no murmur, no pretibial edema Abd: normal BS, soft, non-tender Ext: BUE: normal appearance, ROM intact and non-tender. RLE: normal appearance, nontender. LLE: +edema anterior knee, +knee immobilizer in place, distal pulses palpable, sensation to light touch intact, brisk capillary refill. Neuro: A&O x 3, no focal deficits noted, normal affect Skin: warm, dry Principal Diagnosis Left Tibial Plateau Fracture/Proximal Fibular Fracture Tobacco abuse Alcohol abuse GERD Hypokalemia Discharge Exam General- No acute distress Head- atraumatic Eyes- PERRL, EOMI, ENT- oropharynx clear Neck- supple, no JVD Lungs- clear to auscultation Heart- regular rhythm; no murmur Abdomen- normal bowel sounds, soft, nontender Extremities- no calf tenderness, Left LE tenderness Neuro- alert, oriented x 3; PERRL, EOMI; no facial palsy; no dysarthria Skin- warm & dry Discharge Data Allergies Allergy/AdvReac Type Severity Reaction Status Date / Time No Known Allergies Allergy Verified 06/14/19 11:35 Consultations 06/11/19 19:40 ED Decision to Admit Stat 06/11/19 20:59 Consult Orthopedic Surgery Routine 06/14/19 16:58 Consult Case Management - Discharge Planning Routine Procedures Performed Operation Date: 06/13/19 14:00 <No data on this case meets the specified criteria> Operation Date: 06/14/19 13:00 Actual Procedures p Left Tibial Plateau Fracture Open Reduction Internal Fixation(Left) - Carlos Doe DO Ordered Studies 06/11/19 16:22 CT cervical spine wo con Stat CT head/brain wo con Stat CT lumbar spine wo con Stat 06/11/19 16:50 CT knee LT wo con Stat 06/14/19 13:00 FL fluoroscopy <1hr Routine FL tibia/fibula LT 2V Routine CT OF THE CERVICAL SPINE CLINICAL HISTORY: Neck pain status post trauma. Patient fell from a ladder. COMPARISON STUDY: No previous studies for comparison. CT DOSE: 1047.28 mGy.cm TECHNIQUE: CT scan of the cervical spine was performed from the skull base to the thoracic inlet. Images are reviewed in the axial, sagittal, and coronal planes. IV contrast was not administered for this examination. A dose lowering technique was utilized adhering to the principles of ALARA. FINDINGS: The visualized portions of the lung apices reveal no evidence of pneumothorax. There is a 14 mm left lobe thyroid nodule. Current recommendations indicate no necessity of follow-up at a patient this age The prevertebral soft tissues are normal. No fractures or subluxations are visualized. There are multilevel degenerative changes IMPRESSION: No evidence of acute fracture or traumatic subluxation. Electronically signed by: Lon Denton M.D. 06/11/2019 5:15 PM Dictated: 06/11/19 171 Transcribed: 06/11/191714 XR femur LT 2V routine CLINICAL HISTORY: Left leg pain status post trauma COMPARISON: None. DISCUSSION: No fractures or dislocations of the left femur are visualized. At the level of the knee there is a lipohemarthrosis. There are fractures of the proximal tibia and fibula as described on the knee radiographs. IMPRESSION: 1. Lipohemarthrosis the level in the 2. No evidence of femoral fracture 3. Fractures of the proximal tibia and fibula Electronically signed by: Lon Denton M.D. 06/11/2019 4:59 PM Dictated: 06/11/191657 Transcribed: 06/11/191657 CT head/brain wo con CLINICAL HISTORY: Head pain status post trauma. Fall from 8 foot ladder. COMPARISON STUDY: No previous studies for comparison. TECHNIQUE: Axial CT of the brain is performed from the vertex to the skull base. IV contrast was not administered for this examination. A dose lowering technique was utilized adhering to the principles of ALARA. CT DOSE: FINDINGS: No intra or extra-axial mass lesions are visualized. There is no CT evidence of acute cortical infarction. There is no evidence of midline shift. There is no acute hemorrhage. No calvarial fractures are visualized. There is no evidence of pathologic ventricular dilatation. There is no evidence of acute sinusitis IMPRESSION: No acute intracranial findings Electronically signed by: Lon Denton M.D. 06/11/2019 5:15 PM Dictated: 06/11/191710 Transcribed: 06/11/191711 XR knee LT 2V routine CLINICAL HISTORY: Left knee pain status post trauma COMPARISON: None. DISCUSSION: There is an acute comminuted transverse fracture through the proximal tibial metaphysis with a longitudinal component extending through the lateral tibial plateau. There is an associated comminuted proximal fibular fracture. There is a lipohemarthrosis. IMPRESSION: 1. Lipohemarthrosis 2. Comminuted proximal tibial fracture with a longitudinal component involving the lateral tibial plateau 3. Comminuted proximal fibular fracture Electronically signed by: Lon Denton M.D. 06/11/2019 4:58 PM Dictated: 06/11/191655 Transcribed: 06/11/191655 CT lumbar spine wo con CT DOSE: 518.37 mGy.cm CLINICAL HISTORY: Back pain. 8 foot fall from ladder TECHNIQUE: Helical images were acquired in transverse plane. Reformatted sagittal and coronal images were reviewed. A dose lowering technique was utilized adhering to the principles of ALARA. CONTRAST: No contrast was administered COMPARISON STUDY: None. FINDINGS: There are bilateral nonobstructing renal calculi. . L1-2 level: There is no evidence of significant disc bulge or focal herniation. There is no evidence of spinal or foraminal stenosis. L2-3 level: There is no evidence of significant disc bulge or focal herniation. There is no evidence of spinal or foraminal stenosis. L3-4 level: There is no evidence of significant disc bulge or focal herniation. There is no evidence of spinal or foraminal stenosis. L4-5 level: There is no evidence of significant disc bulge or focal herniation. There is no evidence of spinal or foraminal stenosis. L5-S1 level: There is a mild circumferential disc bulge. There is no significant spinal or foraminal stenosis. There is a mild spinal curvature convex to the left No fractures or subluxations are visualized. IMPRESSION: No fractures or subluxations are visualized. Electronically signed by: Lon Denton M.D. 06/11/2019 5:22 PM Dictated: 06/11/19 1718 Transcribed: 06/11/19 172 XR pelvis 1-2V routine CLINICAL HISTORY: Pelvic pain status post trauma COMPARISON: None. DISCUSSION: No fractures or dislocations are visualized. There is no evidence for symphysis diastases. There is no evidence for SI joint diastases. IMPRESSION: No fractures identified. Electronically signed by: Lon Denton M.D. 06/11/2019 4:56 PM Dictated: 06/11/19 1656 Transcribed: 06/11/[address] knee LT wo con CT DOSE: 148.58 mGy.cm CLINICAL HISTORY: Left knee pain status post trauma. 8 foot fall from ladder. TECHNIQUE: Helical images were acquired in the transverse plane. Sagittal and coronal reformatted images were acquired. A dose lowering technique was utilized adhering to the principles of ALARA. COMPARISON STUDY: X-ray study performed the same day FINDINGS: There is a lipoma hemarthrosis. No fractures of the patella or distal femur are visualized. There is a comminuted impacted fracture of the proximal tibia with longitudinal components involving the medial and lateral tibial plateaus. There is 2 mm of maximal depression. There is 1 cm of foreshortening. There is an associated comminuted fracture the proximal fibula. IMPRESSION: 1. Lipohemarthrosis 2. Impacted fracture of the proximal tibial metaphysis with 1 cm of foreshortening. There are longitudinal fracture components which involve both the medial and lateral tibial plateaus. 3. Comminuted proximal fibular head and neck fracture Electronically signed by: Lon Denton M.D. 06/11/2019 5:26 PM Dictated: 06/11/19 1722 Transcribed: 06/11/19 1722 FL tibia/fibula LT 2V CLINICAL HISTORY: LT ORIF TIBIAL PLATEAU COMPARISON STUDY: Left knee 06/11/2019. FLUOROSCOPY TIME: 1 minute and 22 seconds. FINDINGS: 2 fluoroscopic spot images of the left lower leg demonstrate a lateral cortical plate transfixed with screws bridging the tibial fracture. The hardware appears intact. Alignment is near-anatomic. There is also displaced fracture at the fibular head/neck. IMPRESSION: Fluoroscopy provided for internal fixation of a left tibial plateau fracture. Electronically signed by: Eric Duong M.D. 06/14/2019 3:22 PM Dictated: 06/14/19 1521 Transcribed: 06/14/19 1521 XR knee LT 2V routine CLINICAL HISTORY: 48 years-old Male presenting with post op ORIF tib plateau. TECHNIQUE: Frontal and crosstable lateral views of the left knee were obtained. COMPARISON: Plain radiographs and 06/11/2019. FINDINGS: Buttress plate and screw fixation of the comminuted tibial plateau fracture involving both the medial and lateral metaphysis with intra-articular extension in the intercondylar region and lateral tibial plateau. No significant residual malalignment of the previously displaced lateral tibial plateau fracture fragment. Redemonstration of the comminuted fibular head fracture, which is unchanged. The knee joint is congruent. There is less than 2 mm of articular cartilage step-off at the lateral tibial plateau. An intra-articular fracture plane is not perceptible in the medial tibial plateau. Expected intra-articular and soft tissue emphysema. A knee joint effusion may be present. Surgical drain in place. Overlying skin ruby. IMPRESSION: Expected postsurgical appearance status post plate and screw fixation of the tibial plateau fracture. No malalignment. Electronically signed by: Pelon Ramos M.D. 06/14/2019 4:26 PM Dictated: 06/14/19 1615 Transcribed: 06/14/19 1615 Hospital Course (1) Fracture of tibia, proximal, left, closed: (2) Closed fracture of fibula, proximal, left: Pt presented with fall from 8 foot ladder. Remembers fall and does not think had LOC. CT HEAD: No acute intracranial findings CT C-SPINE:No evidence of acute fracture or traumatic subluxation. CT L-SPINE: No fractures or subluxations are visualized. LEFT KNEE XRAY: Lipohemarthrosis. Comminuted proximal tibial fracture with a longitudinal component involving the lateral tibial plateau. Comminuted proximal fibular fracture LEFT KNEE CT: Lipohemarthrosis. Impacted fracture of the proximal tibial metaphysis with 1 cm of foreshortening. There are longitudinal fracture components which involve both the medial and lateral tibial plateaus. Comminuted proximal fibular head and neck fracture LEFT FEMUR XRAY: No evidence of femoral fracture PELVIS XRAY: No fractures identified. S/P day#2 Left Tibial Plateau Fracture Open Reduction Internal Fixation performed by Dr. Carlos Deo, DO No postop complication Continue pain control PT/OT eval Nonweightbearing left lower extremity hemoglobin stable Continue Incentive spirometry Fall precaution Will go to rehab today (3) Hypokalemia: K: 3.9 Stable (4) GERD (gastroesophageal reflux disease): Continue PPI (5) Alcohol use: 6 beers/day. Last drink on 06/11 Denies hx ETOH withdrawal. No signs of alcohol withdrawn Counseling on alcohol cessation Continue Folic acid and thiamine (6) Tobacco use: Denies nicotine patch Counseling on smoking cessation DVT Prophylaxis on Lovenox suq CODE STATUS FULL CODE Disposition Will go to rehab today Total Time Total Time Spent Total Time Spent (In Minutes): 35 minutes Total Time Includes: Examination of the Patient, Discharge Planning, Medication Reconciliation, Communication With Other Providers and Other Discharge Plan Discharge Items Patient Disposition: Transfer Inpatient Rehab Fac Reason For Visit: LEFT TIBIA AND FIBULA FRACTURE Discharge Diagnosis: Left Tibial Plateau Fracture/Proximal Fibular Fracture Tobacco abuse GERD Hypokalemia Activity: Per Instructions section Weightbearing: Left non-weightbearing Weightbearing Comment: crutches or walker for ambulation Non-emergency contact: Surgeon Call non-emergency contact if: your pain is not controlled, your temperature is above 101.5, your wound has increased redness and your wound has increased drainage Follow-up/Referrals: Benji Leblanc [Primary Care Provider] - Diet: Regular Addtl Attending Provider Instructions: Follow up with your primary care provider once discharge from rehab Follow up with orthopedic in 2 weeks. please call to schedule for the appointment Continue occupational and physical therapy Fall precaution Continue smoking cessation Continue stool softener while on narcotic Do not drive or perform any machine while on on narcotic Please hold next dose of narcotic if you become drowsy and lethargy Addtl Classifications Officer Cc/Cm Provider Instructions: Non weightbearing on the left leg. Use crutches or a walker to assist with ambulation. Use immobilizer at all times when ambulating. May loosen while at rest with leg full straight. May remove for changing clothes and showering. NO Range of motion of the left knee at this time. Ok to shower in 48 hours from the time the drain was removed. No tub baths. Do not soak the wounds. Continue Lovenox at Rehab facility for 2 weeks. Then Aspirin 81 mg orally twice daily for 2 weeks. Follow up with Dr Doe in 2 weeks from the day of surgery. Call for appointment. [phone] Pending Studies at Discharge: Yes Stand-Alone Forms: [facility], Opioid Pain Management Skilled Items Patient informed of condition?: Yes DNR: No Discharge Level of Care: Acute rehab Communicable Disease: No Discharge Prognosis: Stable Lines: None Urinary Catheter: No Medications and DC Order Prescriptions: New oxycodone 5 mg Tablet 5 mg PO Q4H PRN (Reason: pain) Qty: 18 RF: 0 thiamine HCl (vitamin B1) [Vitamin B-1] 100 mg Tablet 100 mg PO QAM 30 Days Qty: 30 RF: 0 docusate sodium 100 mg Capsule 100 mg PO BID Qty: 30 RF: 0 folic acid 1 mg Tablet 1 mg PO QAM 30 Days Qty: 30 RF: 0 enoxaparin 40 mg/0.4 mL Syringe 40 mg subcut QAM 14 Days Qty: 5.6 RF: 0 Continued omeprazole 40 mg capsule,delayed release(DR/EC) 40 mg PO QAM RF: 0 Discharge Orders: Discharge Order (Routine); Ordered 06/17/19 Ordered By: Bautista Boggs/Other Patient Handouts: Fx Leg Arm, Having Tibia/Fibula Fracture Open Reduction and Internal Fixation ORIF Admission Data Admit Date/Time: 06/13/19 13:15 Attending Provider: Bautista Mcclain Admit Provider: Eliu Sampson Primary Care Provider: Benji Leblanc Other Providers: Eliu Sampson ; Terry Boothe ; Jaret Yepez Other Interventions: Discharge Summary Assessment (RN) Last Done: 06/17/19 13:36 DC Date/Time DO NOT enter until pt leaves facility: 06/17/19 16:35
== END 2019-06-17 16:35 | DRG 494 ==
LOC: 2W 16:11 → ED 16:11 → SUATTDRO 19:56 → 2W 20:35 → SUATTDRO 06-13 13:15 → 3N 06-13 14:23

== ENCOUNTER 2020-05-14 21:19 | Inpatient (IN) ==
[2020-05-14] MEDS ORDERED: KETOROLAC 30 MG/ML VIAL IV STA (21:41)
[2020-05-14] MEDS ORDERED: ACETAMINOPHEN 1,000 MG/100 ML VIAL IV STA (21:41)
[2020-05-14] MEDS ORDERED: ONDANSETRON INJ 2 MG/ML 2 ML VIAL IV STA (21:41)
[2020-05-14] MEDS ORDERED: SODIUM CHLORIDE 0.9% 1000ML 1,000 ML IV SCH ×2 (21:45→22:45)
[2020-05-14 21:46] LABS: Basophils # (auto) 0.01 K/uL (0-0.2); Basophils % (auto) 0.1 %; Eosinophils # (auto) 0.06 K/uL (0-0.5); Eosinophils % (auto) 0.6 %; Hematocrit (blood only) 54.3 % (42-52); Hemoglobin 19.2 g/dL (14.0-18.0); Immature Granulocytes # (auto) 0.03 K/uL (0.00-0.02); Immature Granulocytes % (auto) 0.3 %; Lymphocytes # (auto) 1.14 K/uL (1.2-3.4); Lymphocytes % (auto) 11.2 %; Mean Corpuscular Hemoglobin 33.4 pg (25-34); Mean Corpuscular Hgb Conc 35.4 g/dL (32-36); Mean Corpuscular Volume 94.4 fL (80-100); Mean Platelet Volume 11.3 fL (7.4-10.4); Monocytes # (auto) 1.01 K/uL (0.11-0.59); Monocytes % (auto) 9.9 %; Neutrophils # (auto) 7.96 K/uL (1.4-6.5); Neutrophils % (auto) 77.9 %; Platelet Count 220 K/uL (130-400); RDW Coefficient of Variation 14.3 % (11.5-14.5); Red Blood Count 5.75 M/uL (4.7-6.1); White Blood Count 10.21 K/uL (4.8-10.8)
[2020-05-14 22:05] LABS: Albumin Level 3.6 gm/dl (3.4-5.0); BUN Creatinine Ratio 8.9 (10-20); Calcium 9.2 mg/dl (8.5-10.1); Creatinine Clr Calc Pharmacy 58.1 ml/min; Est GFR (African American) 76.8; Est GFR (Non-African American) 66.2; Potassium 3.8 mmol/L (3.5-5.1)
[2020-05-14 22:07] LABS: Bilirubin,Total 0.9 mg/dl (0.2-1); Globulin 3.5 gm/dl (2.5-4.0); Total Protein 7.1 gm/dl (6.4-8.2)
[2020-05-14] MEDS ORDERED: PROMETHAZINE 25 MG/51 ML BAG IV STA (22:44)
[2020-05-14 23:10] LABS: Appearance Urine Clear (Clear); Bacteria Urine Automated Negative (Negative); Bilirubin Urine Negative (Negative); Blood Urine Trace (Negative); Cast Urine Automated 0 /lpf (0-5); Color Urine Yellow; Epithelial Cell Urine Auto 0-5 /lpf (0-5); Glucose Urine UA Negative (Negative); Ketones Urine 1+ (Negative); Leukocyte Esterase Urine Negative (Negative); Nitrite Urine Negative (Negative); Protein Urine Negative (Negative); RBC Urine Automated 0-4 /hpf (0-4); Specific Gravity Urine 1.016 (1.000-1.030); Urobilinogen Urine Negative (Negative)
[2020-05-14 23:30] LABS: Amphetamines+Metham, Urine Neg (Neg); Barbiturates, Urine Neg (Neg); Benzodiazepine, Urine Neg (Neg); Cocaine, Urine Neg (Neg); MDMA (Ecstacy), Urine Neg (Neg); Methadone, Urine Neg (Neg); Opiate, Urine Pos (Neg); Phencyclidine, Urine Neg (Neg)
[2020-05-14] MEDS ORDERED: HYDROmorphone INJ 0.5 MG/0.5 ML SYR IV STA (23:51)
[2020-05-15] MEDS ORDERED: ONDANSETRON INJ 2 MG/ML 2 ML VIAL IV PRN ×2 (01:41→10:42)
[2020-05-15] MEDS: SODIUM CHLORIDE 0.9% 1000ML 1,000 ML IV SCH ×3 (01:41→17:25)
[2020-05-15] MEDS ORDERED: ACETAMINOPHEN 325 MG TAB PO PRN (01:41)
[2020-05-15] MEDS ORDERED: POLYETHYLENE (MIRALAX) 17 GM PACK PO PRN (01:41)
[2020-05-15] MEDS ORDERED: THIAMINE HCL 100 MG in SYRINGE 9 ML IV STA (02:11)
[2020-05-15] MEDS: HYDROmorphone INJ 0.5 MG/0.5 ML SYR IV PRN ×2 (02:25→08:58)
[2020-05-15] MEDS ORDERED: THIAMINE HCL 100 MG in SYRINGE 9 ML IV ONE (02:30)
--- NOTE | 2020-05-15 03:01 | History and Physical Report ---
DATE OF ADMISSION: 05/15/2020 CHIEF COMPLAINT: Right renal colic. HISTORY OF PRESENT ILLNESS: This is a 49-year-old male with past medical history significant for GERD, alcohol use, tobacco use, history of kidney stones in the past, who presents with right renal colic. The patient says he has passed 4 or 5 kidney stones in the past.Since last Thursday he is having right flank pain radiating to his groin region. He went to [facility] and was treated conservatively hoping to pass the kidney stone by himself, but he did not pass it and was having significant pain, about 10/10 in severity and was with nausea which prompted him to come to the ER. Today here, CAT scan shows 6 mm stone in the right mid ureter with moderate obstructive changes. Received pain medication in the ER and currently resting comfortably and hemodynamically stable. Denies any fever, chills. No burning micturitions, no hematuria. Somewhat constipated because of pain medications. Denies any bloody stools or black stools. No chest pain or shortness of breath. No cough, no headache, no blurred visions, no earache, no runny nose, no sore throat, no loss of sense of sense of smell or taste. ALLERGIES: No known drug allergies. PAST MEDICAL HISTORY: As mentioned above. PAST SURGICAL HISTORY: History of arthroscopy of the left shoulder, history of arthroscopy of the left knee, hand surgery, and also last year he had a left tibial plateau fracture open reduction internal fixation. MEDICATIONS: The patient is currently on hydrocodone/acetaminophen 5/325 mg one tablet p.o. q. 6 hours p.r.n., ketorolac 20 mg p.o. q. 8 hours p.r.n., Zofran 4 mg p.o. q. 6-8 hours p.r.n., Protonix 40 mg p.o. daily, Flomax 0.4 mg p.o. daily. FAMILY HISTORY: Denies any family history, but as per records, mother had mental disorder. SOCIAL HISTORY: Smokes quarter pack a day for many years. He says he drinks alcohol, beer, 12-pack per week, but he says he drinks mostly on the weekends and does not get any withdrawal symptoms. No drug abuse as per records. REVIEW OF SYSTEMS: As per HPI. Rest of the review of systems negative. PHYSICAL EXAMINATION: GENERAL: The patient is of moderate build, not in acute distress. VITAL SIGNS: Temperature 36.6, pulse 58, respiratory rate 20, blood pressure 158/91, and oxygen 97% on room air. HEENT: Pupils equal, round, and reactive to light. NECK: Supple, no neck masses. CARDIOVASCULAR: S1, S2 heard, regular rate and rhythm, no murmur, no gallop. RESPIRATORY SYSTEM: Normal AP diameter. No accessory muscle use. No wheezing, no crackles. ABDOMEN: Soft, bowel sounds present. Right CVA tenderness present. No distention. CENTRAL NERVOUS SYSTEM: Cranial nerves II-XII grossly intact. Nonfocal. EXTREMITIES: No edema, no erythema. LABORATORY DATA: WBC 10.2, hemoglobin 19.2, hematocrit 54.3, platelets 220. Sodium 140, potassium 3.8, chloride 106, bicarbonate 26, BUN 11, creatinine 1.2, serum glucose 102, calcium 9.2, total bilirubin 0.9, AST 17, ALT 24, alkaline phosphatase 74. Urinalysis, +1 ketones, trace blood. Urine drug screen positive for opiates. IMAGING DATA: CT scan of the abdomen and pelvis without contrast shows 6 mm stone in the right mid ureter with moderate obstructive changes, probably gallbladder sludge. No radiographic evidence of appendicitis, possible duodenitis, or peptic ulcer disease. ASSESSMENT AND PLAN: This is a 49-year-old male who presents with right renal colic. 1. Right renal colic. CT scan is showing a 6 mm right mid ureteral kidney stone. Will follow final report. History of kidney stones in the past. Pain is going on since last Thursday. Went to two outside hospitals, was treated conservatively, but has not passed the stone yet. We will place him n.p.o. IV fluids, IV antiemetics, IV Dilaudid p.r.n. Consult urology in the a.m. for further recommendations. 2. Elevated hemoglobin, mostly could be from smoking. We will follow the repeat labs. Will need to follow up. 3. Tobacco abuse, needs counseling. 4. Alcohol abuse. He says he drinks mostly on the weekends, 12 beers per week. Last admission he did not had any withdrawal symptoms. We will place him on thiamine, folic acid, and IV Ativan p.r.n. 5. Gastroesophageal reflux disease. Continue Protonix. 6. Deep venous thrombosis prophylaxis, sequential compression devices. DISPOSITION: Admit to medical floor. Expect to discharge home and follow with family doctor. Level 1 full code. MTDD
--- NOTE | 2020-05-15 03:04 | Emergency Department Note ---
History of Present Illness General Chief complaint: Kidney Stone Stated complaint: KIDNEY STONE Time Seen by Provider: 05/14/20 21:31 History of Present Illness Maximum Pain Intensity: 2 This is a 49-year-old male presenting to the emergency department for evaluation of right flank pain for the past 4 to 5 days. Evidently the patient has been seen at multiple hospitals in the past few days, with his first visit being to a hospital in [place]. At that facility he was diagnosed with a right-sided kidney stone. The patient has subsequently visited [facility], as well as [facility]. He states that he has not seen urology, but was told that he had a 7 mm ureteral calculi. The patient was given Vicodin, Flomax, oral Toradol, and instructions to follow with urology. Patient has not yet seen urology, and states that his pain returned tonight and is currently rated a 10/ 10. He has not had fevers or chills. He is still making urine. His pain is not controlled with the Vicodin. He does not have other complaints. Home Medications Home Medications Medication Instructions Recorded Confirmed Type hydrocodone-acetaminophen 1 tab PO Q6H PRN 05/14/20 05/14/20 History ketorolac 10 mg PO Q8H PRN 05/14/20 05/14/20 History ondansetron HCl [Zofran] 4 mg PO .Q6-8HRS PRN 05/14/20 05/14/20 History pantoprazole 40 mg PO DAILY 05/14/20 05/14/20 History tamsulosin 0.4 mg PO DAILY 05/14/20 05/14/20 History Allergies Allergy/AdvReac Type Severity Reaction Status Date / Time No Known Allergies Allergy Verified 05/14/20 22:50 Past Med/Surg History Medical History Alcohol use GERD (gastroesophageal reflux disease) Tobacco use Surgical History History of arthroscopy of left knee History of arthroscopy of left shoulder Family History Mother Mental health disorder Social History (Updated 06/11/19 @ 20:03 by Merna Barone PA-C) Smoking Status: Current every day smoker Cigarettes Per Day: 5; Tobacco Cessation Education Requested by Patient: No Hx Alcohol Use: Yes Alcohol type: beer Hx Substance Use: No Preferred Language: Lithuanian Communication Ability: Effective Hatchery Employee Required: No Beliefs That Will Affect Care: None Current Living Situation: Alone Feels Safe at Home: Yes Review of Systems A total of 10 systems reviewed and were otherwise negative Physical Exam Vital Signs Vital Signs - 24 hr 05/14/20 21:21 05/14/20 22:35 05/14/20 23:45 Temperature 36.6 C Temperature Source Oral Pulse Rate 71 Pulse Rate [Right Finger] 69 58 L Pulse Rhythm [Right Finger] Regular Regular Pulse Strength [Right Finger] Normal Normal Respiratory Rate 18 18 20 Respiratory Effort / Characteristics Non-Labored Non-Labored Spontaneous Non-Labored Spontaneous Respiratory Depth Normal Normal Normal Respiratory Pattern Regular Blood Pressure 150/89 H Blood Pressure [Right Arm] 154/100 H 158/91 H Blood Pressure Mean 109 Blood Pressure Mean [Right Arm] 118 113 Pulse Oximetry 98 99 97 Oxygen Delivery Method Room Air Room Air Room Air Sepsis Recent Fever Within 48 Hours No Sepsis New/Unexplained Change in Mental Status No Sepsis Action Taken by Nursing No Action Required VITALS: Vitals are noted on the nurse's note and reviewed by myself. Vital signs stable. GENERAL: Well-developed, well-nourished, white male, who is in moderate to severe discomfort secondary to his stated complaint. He is overall cooperative. HEAD: Normocephalic atraumatic. NECK: Supple without nuchal rigidity. No lymphadenopathy. No thyromegaly. Cervical spine is nontender. HEART: Regular rate and rhythm without murmurs gallops or rubs. LUNGS: Clear to auscultation bilaterally without wheezes, rales or rhonchi. No retractions or accessory muscle use. ABDOMEN: Positive normal bowel sounds x 4. Soft, nontender, without masses or organomegaly. No guarding or rebound tenderness. No CVA tenderness. MUSCULOSKELETAL: No muscle atrophy, erythema, or edema noted. Full range of motion in all extremities. NEURO: Patient was alert and oriented to person place and time. CN II through XII grossly intact. Course Administered Medications Hydromorphone HCl (Hydromorphone Inj 0.5 Mg/0.5 Ml Syr) 0.5 mg IV Q3H PRN PRN Reason: Pain Stop: 05/29/20 01:40 Last Admin: 05/15/20 02:25 Dose: 0.5 mg Documented by: [id number] Sodium Chloride (Nss 1000ml) 1,000 mls @ 125 mls/hr IV .Q8H MIRYAM Stop: 06/14/20 01:40 Last Admin: 05/15/20 01:41 Dose: 125 mls/hr Documented by: [id number] Discontinued Medications Hydromorphone HCl (Hydromorphone Inj 0.5 Mg/0.5 Ml Syr) 0.5 mg IV NOW STA Stop: 05/14/20 23:52 Last Admin: 05/15/20 00:00 Dose: 0.5 mg Documented by: [id number] Sodium Chloride (Nss 1000ml) 1,000 mls @ 999 mls/hr IV .Q1H1M MIRYAM Stop: 05/14/20 22:45 Last Infusion: 05/14/20 22:55 Dose: 0 mls/hr Documented by: [id number] Admin: 05/14/20 21:50 Dose: 999 mls/hr Documented by: [id number] Acetaminophen (Ofirmev) 1,000 mg in 100 mls @ 400 mls/hr IV NOW STA Stop: 05/14/20 21:55 Last Infusion: 05/14/20 22:10 Dose: 0 mls/hr Documented by: [id number] Admin: 05/14/20 21:50 Dose: 400 mls/hr Documented by: [id number] Promethazine HCl (Phenergan) 25 mg in 51 mls @ 204 mls/hr IV NOW STA Stop: 05/14/20 22:58 Last Infusion: 05/14/20 23:46 Dose: 0 mls/hr Documented by: [id number] Admin: 05/14/20 22:55 Dose: 204 mls/hr Documented by: [id number] Sodium Chloride (Nss 1000ml) 1,000 mls @ 999 mls/hr IV .Q1H1M MIRYAM Stop: 05/14/20 23:45 Last Infusion: 05/15/20 00:00 Dose: 0 mls/hr Documented by: [id number] Admin: 05/14/20 22:55 Dose: 999 mls/hr Documented by: [id number] Ketorolac Tromethamine (Ketorolac 30 Mg/Ml Vial) 30 mg IV NOW STA Stop: 05/14/20 21:42 Last Admin: 09/07/20 21:51 Dose: 30 mg Documented by: [id number] Ondansetron HCl (Ondansetron Inj 2 Mg/Ml 2 Ml Vial) 4 mg IV NOW STA Stop: 05/14/20 21:42 Last Admin: 05/14/20 21:51 Dose: 4 mg Documented by: [id number] Medical Decision Making Home Medications Additional Comments: Differential diagnosis: Etiologies such as shingles, pyelonephritis/UTI, renal colic, appendicitis, diverticulitis, mesenteric ischemia, torsion, aortic pathology, infections, inflammatory bowel disease, bowel obstruction, PUD, biliary pathology, as well as others were entertained. Laboratory Data Result diagrams: 05/14/20 21:30 05/14/20 21:30 Lab Results 05/14/20 05/14/20 05/14/20 Range/Units 21:30 21:30 22:55 WBC 10.21 (4.8-10.8) K/uL RBC 5.75 (4.7-6.1) M/uL Hgb 19.2 H (14.0-18.0) g/dL Hct 54.3 H (42-52) % MCV 94.4 (80-100) fL MCH 33.4 (25-34) pg MCHC 35.4 (32-36) g/dL RDW Std Deviation 49.0 H (36.4-46.3) fL RDW Coeff of Kali 14.3 (11.5-14.5) % Plt Count 220 (130-400) K/uL MPV 11.3 H (7.4-10.4) fL Immature Gran % (Auto) 0.3 % Neut % (Auto) 77.9 % Lymph % (Auto) 11.2 % Thomas % (Auto) 9.9 % Eos % (Auto) 0.6 % Baso % (Auto) 0.1 % Neut # (Auto) 7.96 H (1.4-6.5) K/uL Lymph # (Auto) 1.14 L (1.2-3.4) K/uL Thomas # (Auto) 1.01 H (0.11-0.59) K/uL Eos # (Auto) 0.06 (0-0.5) K/uL Baso # (Auto) 0.01 (0-0.2) K/uL Immature Gran # (Auto) 0.03 H (0.00-0.02) K/uL Sodium 140 (136-145) mmol/L Potassium 3.8 (3.5-5.1) mmol/L Chloride 106 (98-107) mmol/L Carbon Dioxide 26 (21-32) mmol/L Anion Gap 8.0 (3-11) BUN 11 (7-18) mg/dl Creatinine 1.25 (0.6-1.4) mg/dl Est Cr Clr Drug Dosing 58.1 ml/min Est GFR ( Amer) 76.8 Est GFR (Non-Af Amer) 66.2 BUN/Creatinine Ratio 8.9 L (10-20) Glucose 102 H (70-99) mg/dl Calcium 9.2 (8.5-10.1) mg/dl Total Bilirubin 0.9 (0.2-1) mg/dl AST 17 (15-37) U/L ALT 24 (12-78) U/L Alkaline Phosphatase 94 (45-117) U/L Total Protein 7.1 (6.4-8.2) gm/dl Albumin 3.6 (3.4-5.0) gm/dl Globulin 3.5 (2.5-4.0) gm/dl Albumin/Globulin Ratio 1.0 (0.9-2) Urine Color Yellow Urine Appearance Clear (Clear) Urine pH 8.0 H (4.5-7.5) Ur Specific [place] 1.016 (1.000-1.030) Urine Protein Negative (Negative) Urine Glucose (UA) Negative (Negative) Urine Ketones 1+ H (Negative) Urine Blood Trace H (Negative) Urine Nitrite Negative (Negative) Urine Bilirubin Negative (Negative) Urine Urobilinogen Negative (Negative) Ur Leukocyte Esterase Negative (Negative) Urine WBC (Auto) 1-5 (0-5) /hpf Urine RBC (Auto) 0-4 (0-4) /hpf U Hyaline Cast (Auto) 0 (0-5) /lpf U Epithel Cells (Auto) 0-5 (0-5) /lpf Urine Bacteria (Auto) Negative (Negative) Urine Opiates Screen (Neg) Ur Methadone, Qual (Neg) Urine Barbiturates (Neg) Ur Phencyclidine (PCP) (Neg) U Amphetamin/Meth Scrn (Neg) MDMA (Ecstasy) Screen (Neg) U Benzodiazepines Scrn (Neg) Ur Cocaine Metabolite (Neg) U Marijuana (THC) Screen (Neg) 05/14/20 Range/Units 22:55 WBC (4.8-10.8) K/uL RBC (4.7-6.1) M/uL Hgb (14.0-18.0) g/dL Hct (42-52) % MCV (80-100) fL MCH (25-34) pg MCHC (32-36) g/dL RDW Std Deviation (36.4-46.3) fL RDW Coeff of Kali (11.5-14.5) % Plt Count (130-400) K/uL MPV (7.4-10.4) fL Immature Gran % (Auto) % Neut % (Auto) % Lymph % (Auto) % Thomas % (Auto) % Eos % (Auto) % Baso % (Auto) % Neut # (Auto) (1.4-6.5) K/uL Lymph # (Auto) (1.2-3.4) K/uL Thomas # (Auto) (0.11-0.59) K/uL Eos # (Auto) (0-0.5) K/uL Baso # (Auto) (0-0.2) K/uL Immature Gran # (Auto) (0.00-0.02) K/uL Sodium (136-145) mmol/L Potassium (3.5-5.1) mmol/L Chloride (98-107) mmol/L Carbon Dioxide (21-32) mmol/L Anion Gap (3-11) BUN (7-18) mg/dl Creatinine (0.6-1.4) mg/dl Est Cr Clr Drug Dosing ml/min Est GFR ( Amer) Est GFR (Non-Af Amer) BUN/Creatinine Ratio (10-20) Glucose (70-99) mg/dl Calcium (8.5-10.1) mg/dl Total Bilirubin (0.2-1) mg/dl AST (15-37) U/L ALT (12-78) U/L Alkaline Phosphatase (45-117) U/L Total Protein (6.4-8.2) gm/dl Albumin (3.4-5.0) gm/dl Globulin (2.5-4.0) gm/dl Albumin/Globulin Ratio (0.9-2) Urine Color Urine Appearance (Clear) Urine pH (4.5-7.5) Ur Specific [place] (1.000-1.030) Urine Protein (Negative) Urine Glucose (UA) (Negative) Urine Ketones (Negative) Urine Blood (Negative) Urine Nitrite (Negative) Urine Bilirubin (Negative) Urine Urobilinogen (Negative) Ur Leukocyte Esterase (Negative) Urine WBC (Auto) (0-5) /hpf Urine RBC (Auto) (0-4) /hpf U Hyaline Cast (Auto) (0-5) /lpf U Epithel Cells (Auto) (0-5) /lpf Urine Bacteria (Auto) (Negative) Urine Opiates Screen Pos H (Neg) Ur Methadone, Qual Neg (Neg) Urine Barbiturates Neg (Neg) Ur Phencyclidine (PCP) Neg (Neg) U Amphetamin/Meth Scrn Neg (Neg) MDMA (Ecstasy) Screen Neg (Neg) U Benzodiazepines Scrn Neg (Neg) Ur Cocaine Metabolite Neg (Neg) U Marijuana (THC) Screen Neg (Neg) Imaging Data Radiologist's Impression: Preliminary Findings Only See Final Report For Complete Findings CT ABDOMEN & PELVIS Without Contrast: 6 mm stone in the right mid ureter with moderate obstructive changes. Probable gallbladder sludge. No radiographic evidence of pancreatitis. Bilateral nephrolithiasis. Colonic diverticula without diverticulitis. Some edema around the duodenum that could be secondary to the obstructive changes in the right kidney. Differential can include duodenitis or peptic ulcer disease. No radiographic evidence of appendicitis. MDM Narrative Physical exam and history were performed. Nursing notes, EMR, and Medication List were personally reviewed. Patient appears to have right-sided flank pain with reported history of ureteral calculi. IV access was established and labs were obtained. The patient was initially hydrated with normal saline and given IV Toradol, IV Tylenol, and IV Zofran. I did attempt to get records from [facility], as evidently this is the most recent hospital that he was at, however this process did take several hours. Th e patient continued to have discomfort after initial treatment, and CT scan was performed here. The patient was given IV Dilaudid for additional pain control. He did need Phenergan to natalia his nausea after he did have one episode of vomiting here in the ER. The patient's blood work is as above and was reviewed. He does not have a significantly elevated white blood cell count. He does have an elevated hemoglobin at 19.2, however this does seem something of a persistent finding for the patient. He does not have a significant electrolyte imbalance. Glucose is 102. Transaminases are not diagnostic. BUN is 11 and creatinine is 1.25. Urine does have trace blood but no obvious evidence of infection. Drug abuse screen is positive for opioids, which was expected as the patient is on Vicodin. CT scan is as above and was reviewed by myself and radiology. CT scan does appear to show a 6 mm mid ureteral calculi with obstructive findings. On reevaluation the patient did feel better after pain and nausea control. He does not seem well for discharge home. He does have an obstructing stone, and ultimately I did get records from [facility], and it seems his stone has not moved based on their reports. The patient case was discussed with the on-call [facility] hospitalist. Please see their dictation for further patient course, plan, and disposition. The chart was completed utilizing [employer] Voice Recognition Software. Grammatical errors, random word insertions, pronoun errors, and incomplete sentences are an occasional consequence of this system due to software limitatio ns, ambient noise, and hardware issues. Any formal questions or concerns about the content, text, or information contained within the body of this dictation should be directly addressed to the provider for clarification. . Impression & Plan Right ureteral calculus, Hydronephrosis with renal and ureteral calculous obstruction Discharge Plan Visit Data Chief Complaint: Kidney Stone Stated Complaint: KIDNEY STONE ED Provider: Rony Paula ED Midlevel Provider: Pranav Suazo Discharge Problem: Right ureteral calculus, Hydronephrosis with renal and ureteral calculous obstruction Patient Disposition: Admitted As Inpatient Discharge Instructions Interventions: ED Discharge Assessment Last Done: 05/15/20 01:27
[2020-05-15] MEDS ORDERED: CIPROFLOXACIN / D5W 400 MG/200 ML BAG IV SCH (06:00)
[2020-05-15] MEDS ORDERED: LORazepam 0.5 MG/1 ML VIAL IV PRN (06:01)
[2020-05-15 07:31] LABS: Basophils # (auto) 0.01 K/uL (0-0.2); Basophils % (auto) 0.1 %; Eosinophils # (auto) 0.01 K/uL (0-0.5); Eosinophils % (auto) 0.1 %; Hematocrit (blood only) 45.6 % (42-52); Hemoglobin 15.5 g/dL (14.0-18.0); Immature Granulocytes # (auto) 0.01 K/uL (0.00-0.02); Immature Granulocytes % (auto) 0.1 %; Lymphocytes # (auto) 1.26 K/uL (1.2-3.4); Lymphocytes % (auto) 11.5 %; Mean Corpuscular Hemoglobin 32.7 pg (25-34); Mean Corpuscular Volume 96.2 fL (80-100); Mean Platelet Volume 10.7 fL (7.4-10.4); Monocytes # (auto) 0.89 K/uL (0.11-0.59); Monocytes % (auto) 8.1 %; Neutrophils # (auto) 8.82 K/uL (1.4-6.5); Neutrophils % (auto) 80.1 %; Platelet Count 222 K/uL (130-400); RDW Coefficient of Variation 14.3 % (11.5-14.5); RDW Standard Deviation 50.7 fL (36.4-46.3); Red Blood Count 4.74 M/uL (4.7-6.1)
--- NOTE | 2020-05-15 07:40 | CT Scan Report ---
ABDOMEN AND PELVIS CT WITHOUT CONTRAST CT DOSE: 391.08 mGy.cm HISTORY: Acute right-sided flank pain with history of kidney stones Right flank pain, hx of stones TECHNIQUE: Multiaxial CT images of the abdomen and pelvis were performed without contrast. A dose lo wering technique was utilized adhering to the principles of ALARA. COMPARISON STUDY: CT lumbar spine 06/11/2019. FINDINGS: Trace pleural effusions with mild dependent subsegmental bibasilar atelectasis. There is no pneumatosis or pneumoperitoneum. The imaged inferior cardiac chambers are unremarkable. Limited eval uation of the solid abdominal organs without the use of IV contrast. Within the limitations of the ex am, the spleen, pancreas and adrenal glands are unremarkable. Unremarkable gallbladder and liver. There is mild left-sided pelvocaliectasis with multiple left-sided renal sinus cysts. There are least 3 nonobstructing calculi of the left kidney measuring up to 3 mm. 6 mm nonobstructing calculus of th e inferior pole right kidney. 2 mm calculus of the superior pole right kidney. There is moderate righ t-sided hydroureteronephrosis with perinephric and periureteral stranding. 5 x 5 x 7 mm calculus of t he mid right ureter at the level of L4. Transitional lumbosacral anatomy. Moderate bladder wall thick ening with prostamegaly. Aorta and IVC are unremarkable. There is no adenopathy. Mild distal esophageal wall thickening with small hiatal hernia. Mild wall thickening of the duodenum with adjacent free fluid is likely reactive from the aforementioned renal findings. Colonic divertic ulosis. No bowel obstruction. Moderate fecal retention. Noninflamed appendix. Unremarkable soft tissu es. Healing subacute nondisplaced fracture of the anterior right fifth rib. IMPRESSION: 1. Moderate right-sided hydroureteronephrosis secondary to an obstructing 5 x 5 x 7 mm calculus of th e mid ureter at the level of L4. 2. Nonobstructing bilateral nephrolithiasis. 3. No bowel obstruction or bowel wall thickening. Normal appendix. 4. Healing subacute nondisplaced fracture of the anterior right fifth rib. 5. Trace pleural effusions. ACT 112: Negative or not required by law. The above report was generated using voice recognition software. It may contain grammatical, syntax o r spelling errors. Electronically signed by: Dusty Jimenez M.D. 05/15/2020 7:39 AM
[2020-05-15 07:49] LABS: BUN Creatinine Ratio 11.7 (10-20); Calcium 8.1 mg/dl (8.5-10.1); Creatinine Clr Calc Pharmacy 88.6 ml/min; Est GFR (African American) 118.1; Est GFR (Non-African American) 101.9; Magnesium 1.8 mg/dl (1.8-2.4); Potassium 3.9 mmol/L (3.5-5.1)
--- NOTE | 2020-05-15 08:12 | Urology Consultation ---
Date of Consultation May 15, 2020 Assessment & Plan (1) Right ureteral calculus: 49yo M with a 7mm right ureteral stone with moderate hydronephrosis -Keep NPO -Strain all urine -Findings reviewed with Dr. Taylor. Given his right flank pain and moderate right hydronephrosis in the context of an obstructing 7mm mid right ureteral stone, will proceed with OR for Cystoscopy, Right retrograde pyelogram and Right stent placement. Risks and benefits to be reviewed with patient by Dr. Ernie caldera. OR notified. Preoperative CXR ordered. EKG in chart. Will cover with IV Ciprofloxacin preoperatively. History of Present Illness Attending Physician: Jaret Yepez MD Allergies Allergy/AdvReac Type Severity Reaction Status Date / Time No Known Allergies Allergy Verified 05/14/20 22:50 Home Medications Home Medications Medication Instructions Recorded Confirmed Type hydrocodone-acetaminophen 1 tab PO Q6H PRN 05/14/20 05/14/20 History ketorolac 10 mg PO Q8H PRN 05/14/20 05/14/20 History ondansetron HCl [Zofran] 4 mg PO .Q6-8HRS PRN 05/14/20 05/14/20 History pantoprazole 40 mg PO DAILY 05/14/20 05/14/20 History tamsulosin 0.4 mg PO DAILY 05/14/20 05/14/20 History Patient History Medical History Alcohol use GERD (gastroesophageal reflux disease) Tobacco use Surgical History History of arthroscopy of left knee History of arthroscopy of left shoulder Family History Mother Mental health disorder Social History (Updated 06/11/19 @ 20:03 by Merna Barone PA-C) Smoking Status: Current every day smoker Cigarettes Per Day: 5; Tobacco Cessation Education Requested by Patient: No Hx Alcohol Use: Yes Alcohol type: beer Hx Substance Use: No Preferred Language: Czech Communication Ability: Effective Investigator [employer] Required: No Beliefs That Will Affect Care: None Current Living Situation: Alone Feels Safe at Home: Yes Results & Data ([facility]) Vital Signs (Past 12 Hours) Vital Signs Temp Pulse Pulse Resp BP BP Pulse Ox 05/15/20 07:20 36.5 C 62 16 105/66 95 09/08/20 01:50 36.8 C 58 L 18 167/93 H 98 05/15/20 01:27 72 20 148/70 H 98 05/14/20 23:45 58 L 20 158/91 H 97 05/14/20 22:35 69 18 154/100 H 99 05/14/20 21:21 36.6 C 71 18 150/89 H 98 PG Care Time/CCT Total # of Minutes Spent Total Time Spent with Patient: Total time spent is greater than 50% in coordination of care (as documented) at patient's floor/unit and/or counseling patient: Coding Level of Care Code 69871 Inpt Consult Level 3 Diagnoses Right ureteral calculus N20.1
[2020-05-15] MEDS: TAMSULOSIN HCL 0.4 MG CAP PO SCH (08:29)
[2020-05-15] MEDS: PANTOprazole 40 MG TAB PO SCH (08:30)
[2020-05-15] MEDS: THIAMINE HCL 100 MG TAB PO SCH (08:30)
[2020-05-15] MEDS: CEROVITE ADV FORMULA TAB PO SCH (08:30)
[2020-05-15] MEDS: FOLIC ACID 1 MG TAB PO SCH (08:30)
--- NOTE | 2020-05-15 09:37 | XRay Report ---
XR chest 2V PA/lateral HISTORY: Preop. COMPARISON: None. FINDINGS: No pneumothorax. No pleural effusions. No focal lung consolidations to suggest pneumonia. T he heart is normal in size. An 8 mm left suprahilar nodular density. Linear scarlike density within t he base of the left lower lobe. IMPRESSION: 1. No acute process within the chest. 2. An 8 mm left suprahilar nodular density. This is likely due to the overlapping rib and crossing pu lmonary vessels. Follow-up shallow oblique views of the chest are recommended to exclude a pulmonary nodule. ACT 112: Negative or not required by law. Electronically signed by: Eric Duong M.D. 05/15/2020 9:36 AM
[2020-05-15] MEDS: KETOROLAC TROMETHAMINE 15 MG/ML VIAL IV PRN (10:14)
[2020-05-15] MEDS ORDERED: ONDANSETRON INJ 2 MG/ML 2 ML VIAL ONE (10:23)
[2020-05-15] MEDS ORDERED: PROPOFOL IV EMULSION 10 MG/ML 20 ML VIAL IV ONE ×2 (10:23)
[2020-05-15] MEDS ORDERED: fentaNYL citrate 100 MCG/2 ML VIAL ONE (10:23)
[2020-05-15] MEDS ORDERED: DEXAMETHASONE SOD INJ 4 MG/ML VIAL ONE (10:23)
[2020-05-15] MEDS ORDERED: MIDAZOLAM HCL 1 MG/ML 2ML VIAL ONE (10:23)
[2020-05-15] MEDS ORDERED: LIDOCAINE HCL 2% 2 ML VIAL/AMP(20MG/ML) INFIL ONE (10:23)
--- NOTE | 2020-05-15 10:27 | Anesthesiology Consultation ---
Date of Service May 15, 2020 Assessment & Plan (1) Encounter for pre-operative examination: Chart Review Chart Review: Acceptable Risk for Surgery Consults Requested none ASA ASA2 Proposed Anesthesia Anesthesia Type: MAC Risk / Benefits Reviewed With: PT / POA / Parent / Guardian, Accepts Plan and Informed Consent Obtained History Surgery Operation Date: 05/15/20 15:15 Proposed Procedures p Cystoscopy, Right Retrograde Pyelogram, Right Stent Placement - Milton Taylor MD Height/Weight Height: 5 ft 6 in Weight: 59.5 kg Allergies Allergy/AdvReac Type Severity Reaction Status Date / Time No Known Allergies Allergy Verified 05/14/20 22:50 Medications Home Medications Medication Instructions Recorded Confirmed Last Taken hydrocodone-acetaminophen 1 tab PO Q6H PRN 05/14/20 05/14/20 Unknown ketorolac 10 mg PO Q8H PRN 05/14/20 05/14/20 Unknown ondansetron HCl [Zofran] 4 mg PO .Q6-8HRS PRN 05/14/20 05/14/20 Unknown pantoprazole 40 mg PO DAILY 05/14/20 05/14/20 Unknown tamsulosin 0.4 mg PO DAILY 05/14/20 05/14/20 Unknown Active Medications Generic Name Dose Route Start Last Admin Trade Name Freq PRN Reason Stop Dose Admin Folic Acid 1 mg 05/15/20 09:00 05/15/20 08:30 Folic Acid 1 Mg Tab PO 06/14/20 08:59 1 mg QAM MIRYAM Administration Hydromorphone HCl 0.5 mg 05/15/20 01:41 05/15/20 08:58 Hydromorphone Inj 0.5 Mg/0.5 Ml Syr IV 05/29/20 01:40 0.5 mg Q3H PRN Administration Pain Sodium Chloride 1,000 mls @ 125 mls/hr 05/15/20 01:41 05/15/20 10:08 Nss 1000ml IV 06/14/20 01:40 125 mls/hr .Q8H MIRYAM Administration Ketorolac Tromethamine 15 mg 05/15/20 01:41 05/15/20 10:14 Ketorolac Tromethamine 15 Mg/Ml Vial IV 05/20/20 01:40 15 mg Q6H PRN Administration Pain Multivitamins/Minerals 1 tab 05/15/20 09:00 05/15/20 08:30 Cerovite Adv Formula Tab PO 06/14/20 08:59 1 tab QAM MIRYAM Administration Ondansetron HCl 4 mg 05/15/20 01:41 05/15/20 10:08 Ondansetron Inj 2 Mg/Ml 2 Ml Vial IV 06/14/20 01:40 4 mg Q6H PRN Administration Nausea Pantoprazole Sodium 40 mg 05/15/20 09:00 05/15/20 08:30 Pantoprazole 40 Mg Tab PO 06/14/20 08:59 40 mg DAILY MIRYAM Administration Tamsulosin HCl 0.4 mg 05/15/20 09:00 05/15/20 08:29 Tamsulosin Hcl 0.4 Mg Cap PO 06/14/20 08:59 0.4 mg DAILY MIRYAM Administration Thiamine HCl 100 mg 05/15/20 09:00 05/15/20 08:30 Thiamine Hcl 100 Mg Tab PO 06/14/20 08:59 100 mg QAM MIRYAM Administration NPO Date Last Intake of Fluids: 05/14/20 Time Last Intake of Fluids: 19:00 Last Intake of Fluids Comment: sips with meds this AM Date Last Intake of Solids: 05/14/20 Time Last Intake of Solids: 19:00 Past Medical History Medical History Alcohol use GERD (gastroesophageal reflux disease) Tobacco use Exercise / Class Metabolic Activity II 4-5 Yardwork/Stairs/Walk up hill Past Family History Family History Mother Mental health disorder Past Surgical History Surgical History History of arthroscopy of left knee History of arthroscopy of left shoulder Past Anesthesia History No Hx of Anesthesia Complications and No Family Hx of Anesthesia Complications History of PONV No Hx of PONV and No Hx of Motion Sickness Social History Smoking Status: Current every day smoker tobacco type: cigarettes Smoking cigarettes per day: 5 Hx Alcohol Use: Yes Alcohol type: beer alcohol intake frequency: 0-2 drinks per day Hx Substance Use: No Physical Exam Vital Signs Last Vital Signs Temp 97.7 F 05/15/20 07:20 Pulse 62 05/15/20 07:20 Resp 16 05/15/20 07:20 BP 105/66 05/15/20 07:20 Pulse Ox 95 05/15/20 07:20 ENMT Mouth: no dentition abnormality Thyromental Distance: > or= 3.5 Finger Breadths Mallampati Class: II Neck normal visual inspection Respiratory normal respiratory effort Auscultation: lungs clear to auscultation bilaterally Cardiovascular Rate/Rhythm: regular rate and regular rhythm Testing Laboratory Results 05/15/20 07:07 05/15/20 07:07 Urine Color Yellow 05/14/20 22:55 Urine Appearance Clear (Clear) 05/14/20 22:55 Urine pH 8.0 (4.5-7.5) H 05/14/20 22:55 Ur Specific [place] 1.016 (1.000-1.030) 05/14/20 22:55 Urine Protein Negative (Negative) 05/14/20 22:55 Urine Glucose (UA) Negative (Negative) 05/14/20 22:55 Urine Ketones 1+ (Negative) H 05/14/20 22:55 Urine Nitrite Negative (Negative) 05/14/20 22:55 Ur Leukocyte Esterase Negative (Negative) 05/14/20 22:55 Urine WBC (Auto) 1-5 /hpf (0-5) 05/14/20 22:55 Urine RBC (Auto) 0-4 /hpf (0-4) 05/14/20 22:55 U Hyaline Cast (Auto) 0 /lpf (0-5) 05/14/20 22:55 U Epithel Cells (Auto) 0-5 /lpf (0-5) 05/14/20 22:55 Urine Bacteria (Auto) Negative (Negative) 05/14/20 22:55 Electrocardiogram Date: 06/13/19 Findings: + NSR @ (75 bpm) Chest X-Ray Date: 05/15/20 IMPRESSION: 1. No acute process within the chest. 2. An 8 mm left suprahilar nodular density. This is likely due to the overlapping rib and crossing pulmonary vessels. Follow-up shallow oblique views of the chest are recommended to exclude a pulmonary nodule.
[2020-05-15] MEDS ORDERED: ePHEDrine sulfate 50 MG/ML AMP IV PRN (10:42)
[2020-05-15] MEDS ORDERED: ATROPINE SULFATE 0.1 MG/ML 10ML SYR IV PRN (10:42)
--- NOTE | 2020-05-15 10:58 | History & Physical Bridge Note ---
Date of Service May 15, 2020 History & Physical Bridge Note I have examined the patient, reviewed the History & Physical and in the interval since the performance of the History & Physical I have noted the following changes of clinical significance: no changes noted
[2020-05-15] MEDS ORDERED: IOTHALAMATE MEGLUMINE II 17.2% 250 ML VIAL INSTIL SCH (11:30)
--- NOTE | 2020-05-15 11:43 | Operative Report ---
PG Post Operative Report Pre & Post Diagnosis Operation Date: 05/15/20 15:15 Pre-Op Diagnosis: Ureteral calculus on right Post-Op Diagnosis: Right ureteral calculus I identified the patient and participated in the time-out.: Yes Procedure Operation Date: 05/15/20 15:15 Actual Procedures p Right Stent Placement(Right) - Milton Taylor MD s Cystoscopy, Right Retrograde Pyelogram,(Right) - Milton Taylor MD Surgeon Milton Taylor MD [employer] None Estimated Blood Loss 0 Findings See Below Patient had a mid right ureteral stone with proximal hydronephrosis Specimens None Drains 6 Malaysian by 26 cm right ureteral stent Anesthesia Type MAC Complications none Disposition Accompanied Patient To Recovery: Yes Disposition: Recovery Room Indications 49-year-old white male with right renal colic secondary to a 6 mm right ureteral calculus Description of Procedure After the induction of an adequate venous sedation and appropriate timeout patient was placed in the dorsolithotomy position. Lower abdomen and genitalia were prepped with Hibiclens draped in a sterile fashion. Using a 22 [place] cystoscope routine cystoscopic exam was performed. Next the right ureteral orifice was cannulated with a 5 Malaysian open-ended catheter and a right retrograde pyelogram was performed with the above-noted findings. Next under fluoroscopic guidance a 0.03 guidewire was passed through the open-ended catheter into position in the renal pelvis confirmed by fluoroscopy. The open- ended catheter was removed. 6 Malaysian by 26 cm stent was passed over the guidewire up the right ureter under fluoroscopic guidance to position in the renal pelvis. This was confirmed by fluoroscopy. The guidewire was removed. There was a good curl at the bladder level. Patient's bladder was drained cystoscope and sheath removed. All needle sponge and instrument counts were correct at the end of the case. Patient tolerated the procedure well was taken to recovery in stable condition. I attest to the content of the Intraoperative Record and any orders documented therein. Any exceptions are noted below.
--- NOTE | 2020-05-15 11:49 | Fluoroscopy Report ---
FL retrograde includes kub CLINICAL HISTORY: Right-sided stent placement. COMPARISON STUDY: Abdomen and pelvis CT 05/14/2020. FLUOROSCOPY TIME: 20 seconds. FINDINGS: Single fluoroscopic spot images of the right side of the abdomen was submitted. There is re trograde opacification of the right renal collecting system with placement of a right ureteral stent. Only proximal portion of the right stent is identified and appears in good position. IMPRESSION: Fluoroscopy provided for right ureteral stent placement. ACT 112: Negative or not required by law. Electronically signed by: Eric Duong M.D. 05/15/2020 11:48 AM
--- NOTE | 2020-05-15 11:50 | Anesthesiology Progress Note ---
Date of Service May 15, 2020 Anesthesia Post Procedure Vital Signs Vital Signs: Temp Pulse Pulse Pulse Resp BP BP 05/15/20 11:40 78 16 122/50 L 05/15/20 11:33 98.8 F 88 17 101/74 05/15/20 10:42 99.5 F 61 18 05/15/20 07:20 97.7 F 62 16 05/15/20 01:50 98.2 F 58 L 18 05/15/20 01:27 72 20 148/70 H 05/14/20 23:45 58 L 20 05/14/20 22:35 69 18 05/14/20 21:21 97.9 F 71 18 150/89 H BP Pulse Ox 05/15/20 11:40 95 05/15/20 11:33 95 05/15/20 10:42 154/96 H 98 05/15/20 07:20 105/66 95 05/15/20 01:50 167/93 H 98 05/15/20 01:27 98 05/14/20 23:45 158/91 H 97 05/14/20 22:35 154/100 H 99 05/14/20 21:21 98 Pain Intensity Right Flank: Pain Intensity: 0 Bilateral Back: Pain Intensity: 1 Transfer of Care Handoff Completed per policy Notes Mental Status: alert / awake / arousable and participated in evaluation Patient Amnestic to Procedure: Yes Nausea / Vomiting: adequately controlled Pain: adequately controlled Airway Patency, RR, SpO2: stable & adequate BP & HR: stable & adequate Hydration State: stable & adequate Anesthetic Complications: no major complications apparent and Pt Satisfied with anesthetic care
[2020-05-15] MEDS: fentaNYL citrate 100 MCG/2 ML VIAL IV PRN ×3 (11:51→12:03)
[2020-05-15] MEDS ORDERED: KETOROLAC TROMETHAMINE 10 MG TABLET PO PRN (12:37)
--- NOTE | 2020-05-15 13:09 | Communication Note ---
Date of Service: May 15, 2020 He is a 49-year-old male with significant past medical history of kidney stones, alcohol abuse, tobacco abuse and GERD was admitted early this morning with right renal colic secondary to obstructive right ureteral stone Has associated hydronephrosis without any fever and/or chills He has been complaining of pain when I saw him this morning Examination Moderate pain More dynamically stable Chest-clear Abdomen-right CVA fullness and tenderness Has right ureteric colic with obstructive right hydronephrosis Urologist consulted The patient will be seen by Dr. Francis tomorrow morning Dr Radha Yepez
[2020-05-15] MEDS ORDERED: HYDROCODONE/ACETAMOPHEN 5/325MG TAB PO PRN (13:41)
[2020-05-15] MEDS ORDERED: ONDANSETRON 4 MG OD TAB PO PRN (13:42)
--- NOTE | 2020-05-15 17:00 | XRay Report ---
KUB CLINICAL HISTORY: Right ureteral stone. FINDINGS: An AP supine abdominal radiograph is correlated with abdominal CT dated 05/14/2020. There is a nonobstructed abdominal bowel gas pattern noting a moderate colonic fecal retention. A right ureter al stent is in place. A 5 mm stone is present along the proximal stent at the level of L4. An additio nal 4 mm calculus projects over the right kidney. No left renal calculi are clearly identified. The L eft renal shadow is largely obscured by overlying bowel contents. The bony structures appear intact. IMPRESSION: 1. A right ureteral stent is in place with a 5 mm ureteral calculus along the proximal stent. 2. Additional small nonobstructing calculus projects over the right kidney. Electronically signed by: Leonel Bennett M.D. 05/15/2020 4:59 PM
[2020-05-16] MEDS: SODIUM CHLORIDE 0.9% 1000ML 1,000 ML IV SCH ×2 (01:42→09:29)
[2020-05-16 06:29] LABS: Basophils # (auto) 0.04 K/uL (0-0.2); Basophils % (auto) 0.5 %; Eosinophils # (auto) 0.14 K/uL (0-0.5); Eosinophils % (auto) 1.7 %; Hematocrit (blood only) 44.6 % (42-52); Hemoglobin 15.4 g/dL (14.0-18.0); Immature Granulocytes # (auto) 0.03 K/uL (0.00-0.02); Immature Granulocytes % (auto) 0.4 %; Lymphocytes # (auto) 1.84 K/uL (1.2-3.4); Lymphocytes % (auto) 21.9 %; Mean Corpuscular Hemoglobin 32.8 pg (25-34); Mean Corpuscular Hgb Conc 34.5 g/dL (32-36); Mean Corpuscular Volume 95.1 fL (80-100); Mean Platelet Volume 11.3 fL (7.4-10.4); Monocytes # (auto) 0.81 K/uL (0.11-0.59); Monocytes % (auto) 9.7 %; Neutrophils # (auto) 5.53 K/uL (1.4-6.5); Neutrophils % (auto) 65.8 %; Platelet Count 219 K/uL (130-400); RDW Coefficient of Variation 14.5 % (11.5-14.5); RDW Standard Deviation 50.8 fL (36.4-46.3); Red Blood Count 4.69 M/uL (4.7-6.1); White Blood Count 8.39 K/uL (4.8-10.8)
[2020-05-16 06:57] LABS: BUN Creatinine Ratio 14.5 (10-20); Calcium 7.4 mg/dl (8.5-10.1); Creatinine Clr Calc Pharmacy 108.2 ml/min; Est GFR (African American) 128.2; Est GFR (Non-African American) 110.6; Potassium 3.6 mmol/L (3.5-5.1)
[2020-05-16] MEDS: THIAMINE HCL 100 MG TAB PO SCH (08:39)
[2020-05-16] MEDS: PANTOprazole 40 MG TAB PO SCH (08:39)
[2020-05-16] MEDS: FOLIC ACID 1 MG TAB PO SCH (08:39)
[2020-05-16] MEDS: CEROVITE ADV FORMULA TAB PO SCH (08:39)
[2020-05-16] MEDS: TAMSULOSIN HCL 0.4 MG CAP PO SCH (08:39)
--- NOTE | 2020-05-16 08:39 | Urology Progress Note ---
Date of Service May 16, 2020 Assessment & Plan (1) Right ureteral calculus: pod #1 s/p right stent placement - plan for d/c home - we will arrange for outpt f/u to arrange definitive stone surgery Admission and Anticipated Discharge Date Admission Date: May 15, 2020 Subjective pod # 1 s/p stent - some stent related pain, but otherwise doing well - no fevers/chills - anxious to learn the next step in treatment of the stone Physical Exam Constitutional: well developed and well nourished Respiratory: no respiratory distress Cardiovascular: Extremities: no pedal edema Gastrointestinal (Abdomen): Inspection/Auscultation: abdomen normal to inspection Results & Data ([facility]) Vital Signs (Past 12 Hours) Vital Signs Temp Pulse Pulse Resp BP Pulse Ox 05/16/20 06:58 36.6 C 56 L 14 121/79 93 05/16/20 03:04 36.7 C 64 16 132/78 96 05/15/20 23:13 36.7 C 65 18 132/81 94 PG Care Time/CCT Total # of Minutes Spent Total Time Spent with Patient: Total time spent is greater than 50% in coordination of care (as documented) at patient's floor/unit and/or counseling patient: Coding Level of Care Code 59385 Subseq Hosp Care Lvl 2 Diagnoses Right ureteral calculus N20.1
[2020-05-16] MEDS: KETOROLAC TROMETHAMINE 15 MG/ML VIAL IV PRN (09:25)
--- NOTE | 2020-05-16 12:07 | Hospitalist Progress Note ---
Date of Service May 16, 2020 Assessment & Plan (1) Right ureteral calculus: ASSESSMENT AND PLAN: This is a 49-year-old male who presents with right renal colic. 1. Right ureteral stone - CT scan is showing a 6 mm right mid ureteral kidney stone. - Status post right ureter stent placement by Dr. Billy Randolph 05/15/2020 - UA not indicative of UTI Renal function stable -Cleared for discharge per urology service Follow-up with Dr. Randolph next week for definitive stone management, stent removal -Discharge medications: Flomax 0.4 mg daily Tylenol and ibuprofen as needed for pain Pyridium for bladder spasms Tramadol for severe pain 2. Elevated hemoglobin, mostly could be from smoking. -Hemoglobin on admission 17, trended down to 15 Monitor as an outpatient 3. Tobacco abuse - needs counseling outpatient 4. Alcohol Use - No signs of alcohol withdrawal 5. Gastroesophageal reflux disease. Continue Protonix. Disposition: Discharge to home Follow-up with Dr. Randolph next week Follow-up with PCP in 1 week, patient informed Admission and Anticipated Discharge Date Admission Date: May 15, 2020 Subjective Follow-up for right ureteral stone, status post stent placement Seen sitting up in bedside chair, comfortable, not in distress States he feels fine overall Minimal pain on the right flank area Denies problems urination, no hematuria, dysuria No fevers or chills No chest pain, shortness of breath, palpitations, dizziness No other symptoms States he is ready like to be discharged today Review of Systems Review of Systems: All systems reviewed & are unremarkable except as noted in HPI & below Physical Exam Physical Exam: General- oriented x 3, not in distress, speaks in sentences with no effort or accessory muscle use Head- atraumatic Eyes- PERRL, EOMI, anicteric ENT- oropharynx clear Neck- supple, no JVD, no adenopathy, no thyromegaly; carotids +2/2, no bruits appreciated Lungs- clear to auscultation bilaterally, no rales/wheezes Heart- normal rate, regular rhythm; no murmur, no gallop, no rub appreciated Abdomen- normal bowel sounds, nondistended, soft, nontender, no masses or hepatosplenomegaly Extremities- no pretibial edema, no calf tenderness; peripheral pulses intact Neuro- alert, oriented x 3; CN 2-12 grossly intact; motor 5/5 bilaterally;sensation 100% on all extremities; no other gross focal neurologic deficits Skin- warm & dry Results & Data Results & Data ([facility]) Vital Signs (Past 12 Hours) Vital Signs Temp Pulse Pulse Resp BP Pulse Ox 05/16/20 06:58 36.6 C 56 L 14 121/79 93 05/16/20 03:04 36.7 C 64 16 132/78 96 Laboratory Results Laboratory Results - last 24 hr 05/16/20 05/16/20 05:50 05:50 WBC 8.39 RBC 4.69 L Hgb 15.4 Hct 44.6 MCV 95.1 MCH 32.8 MCHC 34.5 RDW Std Deviation 50.8 H RDW Coeff of Kali 14.5 Plt Count 219 MPV 11.3 H Immature Gran % (Auto) 0.4 Neut % (Auto) 65.8 Lymph % (Auto) 21.9 [place] % (Auto) 9.7 Eos % (Auto) 1.7 Baso % (Auto) 0.5 Neut # (Auto) 5.53 Lymph # (Auto) 1.84 [place] # (Auto) 0.81 H Eos # (Auto) 0.14 Baso # (Auto) 0.04 Immature Gran # (Auto) 0.03 H Sodium 144 Potassium 3.6 Chloride 113 H Carbon Dioxide 25 Anion Gap 6.0 BUN 10 Creatinine 0.68 Est Cr Clr Drug Dosing 108.2 Est GFR ( Amer) 128.2 Est GFR (Non-Af Amer) 110.6 BUN/Creatinine Ratio 14.5 Glucose 88 Calcium 7.4 L
--- NOTE | 2020-05-16 12:32 | Discharge Summary ---
Date of Service May 16, 2020 Admission HPI Per Admitting Provider CHIEF COMPLAINT: Right renal colic. HISTORY OF PRESENT ILLNESS: This is a 49-year-old male with past medical history significant for GERD, alcohol use, tobacco use, history of kidney stones in the past, who presents with right renal colic. The patient says he has passed 4 or 5 kidney stones in the past.Since last Thursday he is having right flank pain radiating to his groin region. He went to [facility] and was treated conservatively hoping to pass the kidney stone by himself, but he did not pass it and was having significant pain, about 10/10 in severity and was with nausea which prompted him to come to the ER. Today here, CAT scan shows 6 mm stone in the right mid ureter with moderate obstructive changes. Received pain medication in the ER and currently resting comfortably and hemodynamically stable. Denies any fever, chills. No burning micturitions, no hematuria. Somewhat constipated because of pain medications. Denies any bloody stools or black stools. No chest pain or shortness of breath. No cough, no headache, no blurred visions, no earache, no runny nose, no sore throat, no loss of sense of sense of smell or taste. Admission Exam Per Admitting Provider GENERAL: The patient is of moderate build, not in acute distress. VITAL SIGNS: Temperature 36.6, pulse 58, respiratory rate 20, blood pressure 158/91, and oxygen 97% on room air. HEENT: Pupils equal, round, and reactive to light. NECK: Supple, no neck masses. CARDIOVASCULAR: S1, S2 heard, regular rate and rhythm, no murmur, no gallop. RESPIRATORY SYSTEM: Normal AP diameter. No accessory muscle use. No wheezing, no crackles. ABDOMEN: Soft, bowel sounds present. Right CVA tenderness present. No distention. CENTRAL NERVOUS SYSTEM: Cranial nerves II-XII grossly intact. Nonfocal. EXTREMITIES: No edema, no erythema. Principal Diagnosis Right ureter stone, status post stent placement Discharge Exam General- oriented x 3, not in distress, speaks in sentences with no effort or accessory muscle use Head- atraumatic Eyes- PERRL, EOMI, anicteric ENT- oropharynx clear Neck- supple, no JVD, no adenopathy, no thyromegaly; carotids +2/2, no bruits appreciated Lungs- clear to auscultation bilaterally, no rales/wheezes Heart- normal rate, regular rhythm; no murmur, no gallop, no rub appreciated Abdomen- normal bowel sounds, nondistended, soft, nontender, no masses or hepatosplenomegaly Extremities- no pretibial edema, no calf tenderness; peripheral pulses intact Neuro- alert, oriented x 3; CN 2-12 grossly intact; motor 5/5 bilaterally;sensation 100% on all extremities; no other gross focal neurologic deficits Skin- warm & dry Discharge Data Allergies Allergy/AdvReac Type Severity Reaction Status Date / Time No Known Allergies Allergy Verified 05/14/20 22:50 Consultations 05/15/20 00:38 ED Decision to Admit Stat 05/15/20 01:41 Consult Case Management - Discharge Planning Routine 05/15/20 08:00 Consult Urology Routine Procedures Performed Operation Date: 05/15/20 15:15 Actual Procedures p Right Stent Placement(Right) - Milton Taylor MD s Cystoscopy, Right Retrograde Pyelogram,(Right) - Milton Taylor MD Ordered Studies 05/14/20 23:22 CT abd pelvis wo con Urgent ABDOMEN AND PELVIS CT WITHOUT CONTRAST CT DOSE: 391.08 mGy.cm HISTORY: Acute right-sided flank pain with history of kidney stones Right flank pain, hx of stones TECHNIQUE: Multiaxial CT images of the abdomen and pelvis were performed without contrast. A dose lowering technique was utilized adhering to the principles of ALARA. COMPARISON STUDY: CT lumbar spine 06/11/2019. FINDINGS: Trace pleural effusions with mild dependent subsegmental bibasilar atelectasis. There is no pneumatosis or pneumoperitoneum. The imaged inferior cardiac chambers are unremarkable. Limited evaluation of the solid abdominal organs without the use of IV contrast. Within the limitations of the exam, the spleen, pancreas and adrenal glands are unremarkable. Unremarkable gallbladder and liver. There is mild left-sided pelvocaliectasis with multiple left-sided renal sinus cysts. There are least 3 nonobstructing calculi of the left kidney measuring up to 3 mm. 6 mm nonobstructing calculus of the inferior pole right kidney. 2 mm calculus of the superior pole right kidney. There is moderate right-sided hydroureteronephrosis with perinephric and periureteral stranding. 5 x 5 x 7 mm calculus of the mid right ureter at the level of L4. Transitional lumbosacral anatomy. Moderate bladder wall thickening with prostamegaly. Aorta and IVC are unremarkable. There is no adenopathy. Mild distal esophageal wall thickening with small hiatal hernia. Mild wall thickening of the duodenum with adjacent free fluid is likely reactive from the aforementioned renal findings. Colonic diverticulosis. No bowel obstruction. Moderate fecal retention. Noninflamed appendix. Unremarkable soft tissues. Healing subacute nondisplaced fracture of the anterior right fifth rib. IMPRESSION: 1. Moderate right-sided hydroureteronephrosis secondary to an obstructing 5 x 5 x 7 mm calculus of the mid ureter at the level of L4. 2. Nonobstructing bilateral nephrolithiasis. 3. No bowel obstruction or bowel wall thickening. Normal appendix. 4. Healing subacute nondisplaced fracture of the anterior right fifth rib. 5. Trace pleural effusions. 05/15/20 10:00 FL retrograde includes kub Routine 05/15/20 XR chest 2V PA/lateral HISTORY: Preop. COMPARISON: None. FINDINGS: No pneumothorax. No pleural effusions. No focal lung consolidations to suggest pneumonia. The heart is normal in size. An 8 mm left suprahilar nodular density. Linear scarlike density within the base of the left lower lobe. IMPRESSION: 1. No acute process within the chest. 2. An 8 mm left suprahilar nodular density. This is likely due to the overlapping rib and crossing pulmonary vessels. Follow-up shallow oblique views of the chest are recommended to exclude a pulmonary nodule. Hospital Course (1) Right ureteral calculus: ASSESSMENT AND PLAN: This is a 49-year-old male who presents with right renal colic. Right ureteral stone - CT scan is showing a 6 mm right mid ureteral kidney stone. - Status post right ureter stent placement by Dr. Billy Randolph 05/15/2020 - UA not indicative of UTI Renal function stable -Cleared for discharge per urology service Follow-up with Dr. Randolph next week for definitive stone management, stent removal -Discharge medications: Flomax 0.4 mg daily Tylenol and ibuprofen as needed for pain Pyridium for bladder spasms Tramadol for severe pain Abnormal CT Abdomen/Pelvis Findings - Moderate bladder wall thickening with prostamegaly. Mild distal esophageal wall thickening with small hiatal hernia. - Further management and follow up as outpatient Possible Pulmonary Nodule on Chest Xray - CXR: An 8 mm left suprahilar nodular density. This is likely due to the overlapping rib and crossing pulmonary vessels. - Follow-up shallow oblique views of the chest are recommended to exclude a pulmonary nodule. Elevated hemoglobin - mostly could be from smoking. -Hemoglobin on admission 17, trended down to 15 Monitor as an outpatient Tobacco abuse - needs counseling outpatient Alcohol Use - No signs of alcohol withdrawal Gastroesophageal reflux disease. Continue Protonix. Disposition: Discharge to home Follow-up with Dr. Randolph next week Follow-up with PCP in 1 week, patient informed Total Time Total Time Spent Total Time Spent (In Minutes): 55 minutes Discharge Plan Discharge Items Patient Disposition: Home - Self-Care Reason For Visit: KIDNEY STONE Discharge Diagnosis: Right ureteral stone Ureteral stent placement Activity: Resume your previous activity Activity Comment: Gradually as tolerated Lifting: None Bathing: No limitations Exercise/Sports: None Driving/Machine Use: No driving while taking [place], or any narcotic medication Non-emergency contact: Primary Care Provider and Urologist Call non-emergency contact if: you have any medication questions, your symptoms worsen, your pain is not controlled, your pain is worsening, your pain is unusual for you, your pain is concerning for you and you have a fever Follow-up/Referrals: Calos Randolph MD [Physician] - PCP,NO [Primary Care Provider] - Diet: Regular and Heart Healthy Addtl Attending Provider Instructions: Please review your new medication list and follow instructions carefully. You can use Tylenol 650 mg every 4-6 hours for pain. Do not use Tylenol more than 3,000 mg/day. You can also use Ibuprofen 400 to 600 mg every 4-6 hours for pain. Drink plenty of fluids, at least 6 to 8 glasses of water a day to avoid kidney injury. Call urologist or return to the ER immediately if with worsening of symptoms including Pain or difficulty with urination, blood in the urine, fevers or chills, increasing flank abdominal pain. Follow-up with urologist Dr. Billy Randolph next week for stent removal and further management of the ureteral stone. Please call his office to set up the appointment. Contact information listed above. Follow-up up with your primary care physician in 1 to 2 weeks. You need to have a repeat x-ray to rule out pulmonary nodule. Pending Studies at Discharge: Yes Studies:: Ureteral stent removal next week by urologist Dr. Billy Randolph Repeat chest x-ray to rule out pulmonary nodule by primary care physician Stand-Alone Forms: My [facility], Smoking Cessation Medications and DC Order Prescriptions: Continued tamsulosin 0.4 mg capsule 0.4 mg PO DAILY RF: 0 pantoprazole 40 mg tablet,delayed release (DR/EC) 40 mg PO DAILY RF: 0 Discontinued hydrocodone-acetaminophen 5-325 mg tablet 1 tab PO Q6H PRN (Reason: Pain) RF: 0 ondansetron HCl [Zofran] 4 mg tablet 4 mg PO .Q6-8HRS PRN (Reason: Nausea) RF: 0 ketorolac 10 mg tablet 10 mg PO Q8H PRN (Reason: Pain) RF: 0 Discharge Orders: Discharge Order (Routine); Ordered 05/16/20 Ordered By: Maurisio Francis Admission Data Admit Date/Time: 05/15/20 01:07 Attending Provider: Maurisio Francis Admit Provider: Eliu Sampson Primary Care Provider: PCP,NO Other Providers: Sly Rg ; Milton Taylor ; Pj Gonzalez I. ; Calos Randolph ; Sonia Horta ; Izzy Harvey ; Edward Leavitt ; Maureen Tobin ; Liane Schmidt ; Pankaj Sethi ; Kanika Amos ; Aleja Fontanez ; Eliu Sampson ; Jaret Yepez
[2020-05-17 08:10] LABS: Codeine Urine NEGATIVE ng/mL (<50); Hydrocodone Urine NEGATIVE ng/mL (<50); Hydromor Urine 380 ng/mL (<50); Morphine Urine NEGATIVE ng/mL (<50); Norhydrocodone Conf Ur NEGATIVE ng/mL (<50); Noroxycodone Urine 1140 ng/mL (<50); Oxycodone Urine 408 ng/mL (<50); Oxymorph Urine 1370 ng/mL (<50)
== END 2020-05-16 14:01 | disposition home or self-care (01) | DRG 661 ==
LOC: ED 21:19 → SUATTDRO 05-15 01:07 → 3E 05-15 01:07